=== PATIENT | female | born 1985 | race African-American/Black ===

== ENCOUNTER 2024-08-10 15:33 | Outpatient (REF) | payer OTHER, SELFPAY ==
--- NOTE | ~2024-08-10 | US_ITS ---
EXAMINATION: US ABDOMEN LIMITED CLINICAL INFORMATION: Painful mass right lower back.. COMPARISON: None available. TECHNIQUE: Real-time imaging of palpable right lower back mass was performed. FINDINGS: Imaging through the right lower back reveals no focal mass, lesion or fluid collection. US/US abdomen limited IMPRESSION: Unremarkable limited ultrasound right lower back. Electronically signed by: Phoenix Valero MD 08/11/2024 07:09 AM EDT
--- OUTSIDE RECORDS SUMMARY | 2024-08-10 17:27 | XMS_ITS | Data Portability ---
Author Organization [facility], [employer] Address [address] [place] [address] [place] [address] Assessment Encounter Date Assessment Date Assessment LastModified by Organization Details LastModified Time 09/24/2023 09/24/2023 Assessment - Concern regarding disc involvement and possible impingement leading to numbness - Possible hip involvement Plan - Recommendation for MRI of lumbar region and hips - Continue physical therapy - Continue walking as long as it does not worsen symptoms - Increase intake of fruits and vegetables for their anti-inflammatory properties Prescription Continue current medications Appointments Will inform pt as soon as MRI results are available During this encounter, 2 of the 3 elements of MDM addressed: (1)Number and Complexity of problems: (2)Amount/Complex ity of data (need 1 out of 3 categories): Category 2: Independent interpretation of tests. (3)Moderate Risk of morbidity from additional diagnostic testing or treatment (one needed): Prescription Drug management. [email or web address] Not available 09/24/2023 09:04:51 12/03/2023 12/03/2023 During this encounter, 2 of the 3 elements of MDM addressed: (1)Number and Complexity of problems: 2 or more stable chronic illnesses (2)Amount/Complex ity of data (need 1 out of 3 categories): Category 3: Discussion of management or test interpretation (3)Moderate Risk of morbidity from additional diagnostic testing or treatment (one needed): [email or web address] Not available 12/03/2023 13:49:30 05/05/2024 05/05/2024 The patient was advised to continue a healthy diet and exercise regularly. Preventative care discussed in detail. Eight minutes spent on each counselling about depression, alcohol, obesity, and cardiovascular health. Further preventative care counselling discussed as documented below. Plan - Keep tetanus vaccine on the radar for an update next year, as the last one was in 2016. - Consider scheduling the first mammogram in October, with the option to wait until the next visit to discuss further. - Use salt-free options or alternative seasonings to reduce salt intake, especially from packaged foods. Hydration goal of 60-100 ounces fluids daily. Reduce consumptions of processed food, fried food, red meat, to aim for LDL goal < 130 for cardiac risk reduction. - Maintain current physical activity routine, including restorative yoga and walking, to ensure regular movement. - Consider engaging a care trainer to focus on core stabilization, with available trainers at [employer] recommended for their good reviews. - If desired, seek a second opinion from a missile tracking technician regarding a suspected lipoma, with the option to make an appointment without a referral. Appointments - Appointment with a fertility specialist in [place]. - Eye exam scheduled for August 2024. [email or web address] Not available 05/05/2024 16:36:42 06/22/2024 06/22/2024 1. Mass - patien t with back pain that she has been worked up for, found to be musculoskeletal. It is difficult to palpate the mass that patient is feeling. U/s to be order - will discuss results with patient with possible referal to general surgery. [email or web address] Not available 06/22/2024 12:07:31 07/27/2024 07/27/2024 The patient consented to the IV infusion. The 20 gauge IV was placed in the patient's right antecubital space after 1 attempts. The patient tolerated the procedure well. Complications: none. The patient received a total of 1 liter of 0.9% normal saline. The IV was discontinued after the infusion and the catheter was examined and was intact. This visit is being performed by Noris Monroy RN under the direct supervision of Dar Tinoco DO and they are physically present in the office and available for immediate consultation. The treatment plan was determined by the supervising provider. [email or web address] Not available 07/27/2024 15:29:15 Plan of Treatment Reminders Order Date Submit Date Provider Last Modified By Organization Details Last Modified Time Details Appointments FOLLOW UP 20 2024 09:00A M YOON TOLBERT PA-C Not available Not available Not available Annual Exam 2025 11:00A Ko TOLBERT PA-C Not available Not available Not available Lab None recorded. Referral dermatolo gist referral 2023 024 [facility], [address], [address], [place], [address], 12/05/2023 11:46:27 physical therapist referral 2023 024 [email or web address] [facility], [address], [place], [address], 12/05/2023 11:31:57 Procedures None recorded. Surgeries None recorded. Imaging US, abdomen, limited - painful mass R lower back. r/o lipoma 2024 025 [facility] ([facility]), [address] [place], [address], 07/02/2024 04:01:46 MRI, lumbar spine, w/o contrast [address] [facility] ([facility] [address] [place], [address], 10/05/2023 07:37:03 MRI, hip, w/o contrast - unilatera l right hip [address] [facility] ([facility]), [address] [place], [address], 10/05/2023 07:37:59 Medication Orders None recorded. Patient TargetsNo targets recorded. Patient Instructions Encounter Date Encounter Id Patient Instructions Last Modified By Organization Details Last Modified Time 05/05/2024 [id number] dash diet: care instructions [email or web address] Not available 05/05/2024 16:36:42 Reason for Referral Physical Therapist Referral for Low back pain Referring Physician: [facility], Encounter Date: 12/03/2023 Staff Software Engineer Referral for M ass of skin Referring Physician: [facility], Encounter Date: 12/03/2023 Results Created Date Observation Date Name Description Value Unit Range Abnormal Flag Note LastModifiedBy Organization Detail LastModifiedTime 10/07/19 24 10/06/2023 MRI, lumba r spine , w/o contr ast No observ ation record ed. [facility] ([facility]) [address] [place], [address], 10/09/2023 16:18:52 10/07/19 24 10/06/2023 MRI, lumba r spine , w/o contr ast No observ ation record ed. [address] [facility] ([facility]) [address] [place], [address], 10/07/2023 18:25:55 10/08/1910/06/2023 MRI, hip, w/o contr ast No observ ation record ed. [facility] [address] [place], [address], 10/09/2023 16:42:46 10/08/19 24 10/06/2023 MRI, hip, w/o contr ast No observ ation record ed. [address] [facility] ([facility]) [address] [place], [address], 10/08/2023 19:35:14 Result Notes None recorded. Problems Name Problem SNOMED Code Status Onset Date Resolution Date Notes Provider Name and Address Organization Details Recorded Time Asthma 334995239 Active 2022 Amrita Urias, TODD [address] [facility], [address], [place], [address], [place] [facility] 3 08:45:44 Essential hypertension 89505480 Active 2022 Amrita Urias, TODD [address] [facility], [address], [place], [address], [place] [facility] 3 08:45:54 Uterine leiomyoma 13793626 Active 2023 YOON TOLBERT PA-C [address] [facility], [address], [place], [address], [place] [facility] 4 22:45:09 Problem Notes None recorded. Procedures Surgical History Date Name Laterality Status Provider Name and Address Organization Details Recorded Time 022 Date of Last Pap Smear completed Cristal Hinds [facility] 09/27/2022 15:40:07 009 Breast Surgery completed Amrita Urias, DENTAL LABORATORY TECHNICIAN APPRENTICE [address] [facility], [facility] [address], [place], [address], [facility] 07/03/2022 08:52:32 007 Cholecystectomy completed Amrita Urias, DENTAL LABORATORY TECHNICIAN APPRENTICE [address] [facility], [facility] [address], [place], [address], [facility] 07/03/2022 08:52:32 005 Tonsillectomy completed Amrita Urias, DENTAL LABORATORY TECHNICIAN APPRENTICE [address] [facility], [facility] [address], [place], [address], [facility] 07/03/2022 08:52:32 Imaging Results None recorded. Procedure Notes None recorded. Medical Equipment None Reported. Allergies Allergen ID Allergen Name Allergen Category Reaction Reaction Severity Criticality Documentation Date Start Date Code Code System Note Provider Name and Address Organization Details Recorded Time 4161 latex environme nt,medica tion hives moderate Not available 09/27/2022 95776 91 RxNorm Gloria Machado [facility] 4 10:19:41 6356 No known allergy (situatio n) Not available Not available Not available Not available 11/29/2023 04130 6003 SNOMED Gloria Machado [facility] 4 10:19:41 Medications Name Sig Start Date Stop Date Status Note LastModified by Organization Details LastModified Time cyclobenz aprine 10 mg tablet TAKE 1 TABLET BY MOUTH EVERY DAY 07/03 completed Not Available Not Available Not Available promethaz ine-DM 6.25 mg-15 mg/5 mL oral syrup TAKE 5 ML EVERY 4-6 HOURS BY ORAL ROUTE NEEDED, FOR FOR COUGH. MAXIMUM 30ML/24H OURS.. active Not Available Not Available No t Available nystatin 100,000 unit/mL oral suspensio n 07/22 completed Not Available Not Available Not Available prednison e 10 mg tablet TAKE 4 TABS DAILY FOR 4 DAYS THEN 3 TABS FOR 3 DAYS THEN 2 TABS FOR 2 DAYS THEN 1 TABELT FOR 1 DAY 10/08 /2024 completed Not Available Not Available Not Available Vitamin B-6 25 mg tablet take 1 tablet by mouth three times a day if needed for nausea and vomiting for 7 days 07/22 completed Not Available Not Available Not Available clindamyc in HCl 300 mg capsule take 1 capsule by mouth every 8 hours 09/27 completed Not Available Not Available Not Available ibuprofen 800 mg tablet take 1 tablet by mouth three times a day active Not Available Not Available No t Available Claritin 10 mg tablet 10 mg by oral route. 2022 active Not Available Not Available Not Avai lable carbamaze pine ER 100 mg tablet,ex tended release,1 2 hr take 1 tablet by mouth every 12 hours 01/29 completed Not Available Not Available Not Available metronida zole 0.75 % (37.5 mg/5 gram) vaginal gel INSERT 1 APPLICAT ORFUL VAGINALL Y EVERY DAY AT BEDTIME FOR 5 DAYS 07/03 completed Not Available Not Available Not Available famotidin e 40 mg tablet take 1 tablet by mouth twice a day 08/19 completed Not Available Not Available Not Available topiramat e 25 mg tablet TAKE 1 TABLET BY MOUTH EVERY DAY DIRECTED FOR 14 DAYS 07/03 completed Not Available Not Available Not Available metronida zole 500 mg tablet take 1 tablet by mouth twice a day for 14 days 07/22 completed Not Available Not Available Not Available amlodipin e 5 mg tablet TAKE 1 AND 1/2 TABLETS BY MOUTH DAILY 01/22 completed Not Available Not Available Not Available omeprazol e 40 mg capsule,d elayed release Take 1 capsule every day by oral route. 01/29 completed Not Available Not Available Not Available amoxicill in 500 mg tablet 07/22 completed Not Available Not Available Not Available triamcino lone acetonide 0.025 % topical cream active Not Available Not Available Not Available Proctofoa m 1 % topical Apply to anal area, as needed, up to 5 times daily. 2024 active Not Available Not Available Not Avai lable nifedipin e ER 60 mg tablet,ex tended release 24 hr Take 60 mg by oral route. 2023 active Not Available Not Available Not Avai lable amitripty line 10 mg tablet TAKE 1 TAB BY MOUTH DAILY AT BEDTIME, MAY INCREASE BY 1 TAB EACH WEEK DO NOT EXCEED 5 TABS DAILY. 07/03 completed Not Available Not Available Not Available doxycycli ne monohydra te 100 mg capsule take 1 capsule by mouth twice a day for 14 days 07/22 completed Not Available Not Available Not Available pantopraz ole 40 mg tablet,de layed release Take 1 tablet every day by oral route. 2024 active Not Available Not Available Not Avai lable oseltamiv ir 75 mg capsule TAKE 1 CAPSULE BY MOUTH TWICE A DAY FOR 5 DAYS 05/05 completed Not Available Not Available Not Available misoprost ol 200 mcg tablet INSERT 4 TABLETS VAGINALL Y ONCE 07/22 completed Not Available Not Available Not Available fluticaso ne propionat e 44 mcg/actua tion HFA aerosol inhaler INHALE 2 INHALATI ONS BY MOUTH DAILY 2023 active Not Available Not Available Not Avai lable indometha mike 25 mg capsule take 1 capsule by mouth three times a day for 3 days then 2 capsu... (REFER TO PRESCRIP TION NOTES). 01/29 completed Not Available Not Available Not Available omeprazol e 20 mg capsule,d elayed release Take 1 capsule every day by oral route. 09/27 completed Not Available Not Available Not Available monteluka st 10 mg tablet TAKE 1 TABLET BY MOUTH DAILY 2024 active Not Available Not Available Not Avai lable gabapenti n 100 mg capsule TAKE 1 CAPSULE BY MOUTH 3 TIMES A DAY FOR 10 DAYS 07/03 completed Not Available Not Available Not Available clobetaso l 0.05 % topical ointment APPLY A THIN LAYER TO THE AFFECTED AREA(S) BY TOPICAL ROUTE 2 TIMES PER DAY active Not Available Not Available No t Available scopolami ne 1 mg over 3 days transderm al patch APPLY 1 PATCH TOPICALL Y EVERY 72 HOURS NEEDED active Not Available Not Available No t Available methylpre dnisolone 4 mg tablets in a dose pack TAKE 1 PACK BY MOUTH DAILY FOR 6 DAYS DIRECTED ON PACKAGE 07/22 completed Not Available Not Available Not Available neomycin 500 mg tablet take 1 tablet by mouth twice a day 01/29 completed Not Available Not Available Not Available amoxicill in 875 mg-potass ium clavulana te 125 mg tablet TAKE 1 TABLET BY MOUTH EVERY 12 HOURS FOR 10 DAYS 07/03 completed Not Available Not Available Not Available oxycodone 5 mg tablet take 1 tablet by mouth every 6 hours if needed for pain 08/19 completed Not Available Not Available Not Available NuvaRing 0.12 mg-0.015 mg/24 hr vaginal Insert 1 vaginal ring every month by vaginal route. 01/29 completed Not Available Not Available Not Available cyclobenz aprine 5 mg tablet take 1 tablet by mouth four times a day if needed for 5 days active Not Available Not Available No t Available nitrofura ntoin monohydra te/macroc rystals 100 mg capsule take 1 capsule by mouth twice a day for 7 days 07/22 completed Not Available Not Available Not Available Flovent HFA 110 mcg/actua tion aerosol inhaler Inhale twice a day by inhalati on route. 05/05 completed Not Available Not Available Not Available chlorhexi dine gluconate 0.12 % mouthwash RINSE MOUTH WITH 15 MLS for 30 SECONDS every morning and evening ... (REFER TO PRESCRIP TION NOTES). 01/29 completed Not Available Not Available Not Available loratadin e 1 tab daily 09/27 completed Not Available Not Available Not Available Vitamin C active Not Available Not Teresa ilable Not Available Co Q-10 active Not Available Not Avail able Not Available DHEA active Not Available Not Availa ble Not Available riboflavi n (vitamin B2) 12/02 completed Not Available Not Available Not Available Vitamin D3 active Vitamin D 3000 IU- Vitamin K2 30 mcg po daily Not Available Not Available Not Available Vitamin B12 1000 IU active Not Available Not Available Not Available triamcino lone acetonide 0.1 %-emollie nt comb.no.4 5 topical cream 2022 active Not Available Not Available Not Avai lable Aerochamb er Plus Flow-Vu USE DIRECTED active Not Available Not Available No t Available + DHA active Not Available Not Available Not Available magnesium citrate 100 mg tablet 2023 active Not Available Not Available Not Avai lable ascorbic acid (vitamin C) 125 mg chewable tablet 2022 active Not Available Not Available Not Avai lable riboflavi n (vitamin B2) 400 mg tablet 400 mg by oral route. 2023 active Not Available Not Available Not Avai lable magnesium 200 mg (as magnesium oxide) tablet Take 2 tablets every day by oral route. active Not Available Not Available No t Available Qvar RediHaler 40 mcg/actua tion HFA breath activated aerosol Inhale 1 puff twice a day by inhalati on route for 90 days. active Not Available Not Available No t Available vitamin D3 1,250 mcg (50,000 unit)-vit pino K2 200 mcg capsule Take by oral route. 05/05 completed 300 0 30 mcg K 2 daily Not Available Not Available Not Available Paxlovid 300 mg (150 mg x 2)-100 mg tablets in a dose pack TAKE 3 TABLETS BY MOUTH TWICE A DAY FOR 5 DAYS 07/03 completed Not Available Not Available Not Available Vitals Date Recorded Body height Body mass index (BMI) Body weight Oxygen saturation Oxygen saturation in Arterial blood by Pulse oximetry Heart rate Systolic blood pressure Diastolic blood pressure Provider Name and Address Organization Details Last Updated DateTime 5 162.56 cm 36.8 kg/m2 85594.2 2 g 99 % 99 % 96 /min 136 mm[Hg] 72 mm[Hg] Gloria [facility] 5 12:58:10 Date Recorded Body height Oxygen saturation Oxygen saturation in Arterial blood by Pulse oximetry Heart rate Systolic blood pressure Diastolic blood pressure Provider Name and Address Organization Details Last Updated DateTime 4 162.56 cm 98 % 98 % 89 /min 134 mm[Hg] 68 mm[Hg] Gloria [facility] 4 08:36:50 Date Recorded Body height Oxygen saturation Oxygen saturation in Arterial blood by Pulse oximetry Heart rate Systolic blood pressure Diastolic blood pressure Provider Name and Address Organization Details Last Updated DateTime 4 162.56 cm 98 % 98 % 80 /min 144 mm[Hg] 80 mm[Hg] Noris Monroy RN [address] [address], [place], [address], [facility] 4 10:47:51 Social History Question Answer Notes LastModified by Organizat ion Details LastModified Time Tobacco Smoking Status Never Smoker Amrita Urias NP [address] [facility] [address], [place], [address], [place] [facility] 07/03/2022 08:51:43 Do You Have An Advance Directive? No Information not available 07/03/2022 What Is Your Level Of Caffeine Consumption? None [email or web address] Information not available 01/29/2023 What Was The Date Of Your Most Recent Tobacco Screening? 05/05/2024 [email or web address] Information not available 05/05/2024 Sex: Unknown Functional Status Question Answer Note LastModified by Organization Details LastModified Time Do you use any illicit or recreational drugs? No marijuana edible and smoking prior to [email or web address] Information not available 01/29/2023 What is your level of alcohol consumption? Occasional not during pregnany; avg of 3 drinks/month prior [email or web address] Information not available 01/29/2023 Do you or have you ever used smokeless tobacco? Never used smokeless tobacco Information not available 07/03/2022 Are you currently employed? 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 Family History Relationship Description Onset Age of this Age Resolved Age Notes LastModified by Organization Details LastModified Time Mother Harmful pattern of use of alcohol pt. added direct ly (07/02) [email or web address] Not available 07/02/2022 18:53:04 Mother Diabetes mellitus pt. added direct ly (07/02) [email or web address] Not available 07/02/2022 18:53:21 Mother Hypertensive disorder pt. added direct ly (07/02) [email or web address] Not available 07/02/2022 18:53:35 Mother Mental disorder pt. added direct ly (07/02) [email or web address] Not available 07/02/2022 18:53:46 Mother Chronic obstructive pulmonary disease pt. added direct ly (07/02) [email or web address] Not available 07/02/2022 18:54:01 Mother Substance abuse pt. added direct ly (07/02) [email or web address] Not available 07/02/2022 18:54:17 Brother Harmful pattern of use of alcohol pt. added direct ly (07/02) [email or web address] Not available 07/02/2022 18:53:04 Brother Asthma pt. added direct ly (07/02) [email or web address] Not available 07/02/2022 18:53:11 Brother Substance abuse pt. added direct ly (07/02) [email or web address] Not available 07/02/2022 18:54:17 Sister Asthma pt. added direct ly (07/02) [email or web address] Not available 07/02/2022 18:53:11 Maternal Uncle Diabetes mellitus pt. added direct ly (07/02) [email or web address] Not available 07/02/2022 18:53:21 Maternal Grandmother Hypertensive disorder pt. added direct ly (07/02) [email or web address] Not available 07/02/2022 18:53:35 Father Substance abuse pt. added direct ly (07/02) [email or web address] Not available 07/02/2022 18:54:17 Medical History Condition Response Obesity Y Eczema Y Headaches Y Hypertension Y Reflux/GERD Y Asthma Y Gynecological History Statement/Question Response Date of Last Pap Smear 01/05/2022 Obstetrics History GPAL:G 0 P 0 0 0 0 Immunizations Vaccine Type Date Status Note Provider Nam e and Address Organization Details Recorded Time Influenza, split virus, quadrivalent, preservative 0 completed Cristal Hinds null, [place] [facility] 09/27/2022 15:40:18 Influenza, split virus, quadrivalent, preservative 1 completed Cristal Hinds null, [place] [facility] 09/27/2022 15:40:19 Influenza, split virus, quadrivalent, preservative 8 completed Cristal Hinds null, [place] [facility] 09/27/2022 15:40:19 COVID-19, mRNA, LNP-S, PF, 100 mcg/0.5mL dose or 50 mcg/0.25mL dose 1 completed Cristal Hinds null, [place] [facility] 09/27/2022 15:40:19 COVID-19, mRNA, LNP-S, PF, 100 mcg/0.5mL dose or 50 mcg/0.25mL dose 1 completed Cristal Hinds null, [place] [facility] 09/27/2022 15:40:19 COVID-19, mRNA, LNP-S, PF, 100 mcg/0.5mL dose or 50 mcg/0.25mL dose 0 completed Cristal Burlingham null, [place] [facility] 09/27/2022 15:40:19 COVID-19, mRNA, LNP-S, PF, 30 mcg/0.3 mL dose 2 completed Cristal Burlingham null, [place] [facility] 09/27/2022 15:40:19 COVID-19, mRNA, LNP-S, bivalent, PF, 30 mcg/0.3 mL dose 2 completed Cristal Burlingham null, [place] [facility] 09/27/2022 15:40:19 pneumococcal polysaccharide PPV23 1 completed Cristal Burlingham null, [place] [facility] 09/27/2022 15:40:19 Tdap 6 completed Cristal Burlingham null, [place] [facility] 09/27/2022 15:40:19 Influenza, split virus, quadrivalent, PF 2 completed Cristal Burlingham null, [place] [facility] 09/27/2022 15:40:19 Influenza, split virus, quadrivalent, PF 9 completed Cristal Burlingham null, [place] [facility] 09/27/2022 15:40:19 COVID-19, mRNA, LNP-S, PF, diandra-sucrose, 30 mcg/0.3 mL 3 completed Cristal Burlingham null, [place] [facility] 06/14/2023 08:06:47 Influenza, split virus, quadrivalent, PF 3 completed Cristal Burlingham null, [place] [facility] 06/14/2023 08:06:47 COVID-19, mRNA, LNP-S, PF, diandra-sucrose, 30 mcg/0.3 mL 4 completed YOON TOLBERT PA-C [address] [place] [address], , [place] [facility] 05/05/2024 16:23:23 Influenza, MDCK, trivalent, PF 4 completed YOON TOLBERT PA-C [address] [address], [place], [place], , [place] [facility] 05/05/2024 16:23:23 Past Encounters Encounter ID Performer Location Encounter Start Date Encounter Closed Date Diagnosis/Indication Diagnosis SNOMED-CT Code Diagnosis ICD10 Code Diagnosis Note [id number] Amrita Urias NP Main Office [address] [place] [address] [address] [place] [address] 07/03/2022 08:35:17 07/03/2022 09:07:09 Essential hypertension 52127634 I10 Increase amlodipine to 7.5 mg daily. ADvised on possible s/e including dizziness, ankle swelling, etc. She will monitor @ home. Headache 65578347 R51.9 Refer to ENT to complete work up.Headach es generally better with addition of riboflavin . Screening for cardiovascular system disease 202625929 Z13.6 Check screening labs before physical. [id number] Sun Wilson NP Main Office [address] [place] [address] [address] [place] [address] 09/27/2022 15:36:29 09/27/2022 16:02:42 Unilateral left sided headache 3522984852 R51.9 Ongoing for 14 months. When discussing with her it sounds as if it follows the 5th cranial nerve pathway, possible trigeminal neuralgia diagnosis. We discussed this and I am willing to trial low dose carbamazep ine to see if she has any improvemen t in symptoms. She will follow up in 2-3 weeks so we can check in. Will refer to rheumatolo gy and neurology as well. She has a health plan that allows her to go out of state and she requests specific provider so we will make those referral for her today. [id number] Amrita Urias NP Main Office [address] [place] [address] [address] [facility] [place] [id number] 11/06/2022 09:24:33 11/06/2022 09:56:18 Headache due to exertion [id number] 26017 G44.84 Recommenda tions from neurologis t Dr. Matson are reasonable .Will check for any vascular anomaly as below. MRI brain w/w/o contrast already been ordered, wonder if they can be combined.I f secondary causes r/o, will trial indomethac in as below. 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 [id number] Amrita Urias NP Main Office [address] [facility],[address] [place] [address] 12/25/2022 09:02:28 12/25/2022 09:37:49 Gastroesophageal reflux disease [id number] K21.00 With max OTC dosing PPI, referral to GI for likely EGD is reasonable . Will switch to pantoprazo le BID, may offer more benefits. Call if symptoms worsen before GI referral. Chronic constipation [id number] K59.09 Improved with OTC magnesium, and recommenda tions from functional medicine provider. Will defer decision regarding colonoscop y to GI. [id number] YOON TOLBERT PA-C Main Office [address] [facility],[address] [place] [address] 01/29/2023 11:00:38 01/29/2023 12:09:20 Active or passive immunization [id number] Z23 already obtained flu and covid shots 12/28/22 Adult heal th examination [id number] Z00.00 Gastroesop hageal reflux disease [id number] K21.9 Was planning to obtain an endoscopy prior to , but plans to wait until after at this time. Symptoms well controlled with pepcid thus far. Discussed the risk of worsening GERD symptoms during , pt plans to reach out to gastroente rologist if needed. Reviewed lifestyle modificati ons. Asthma [id number] J45.90 9 Well controlled . Requesting refill on spacer at this time [id number] YOON TOLBERT PA-C Main Office [address] [place] [address],[address] [place] [address] 07/23/2023 11:38:44 07/23/2023 13:52:45 Acute pelvic pain [id number] R10.2 Case discussed with Sun Wilson NP.Ddx: acute cystitis, endometrit is, cervicitis , ovarian cyst rupture, vs ectopic (low risk given recent LMP in last 2 weeks)Plan :- Will obtain labs and pelvic US as below. Will plan to f/u with [facility] gynecology 08/05/23.- ED criteria provided. Venereal d isease screening [id number] Z11.3 Low back pain [id number] M54.50 2 day history of acute back pain. 06/04, constant, described as spasm, following a tweak in the shower.Con tinues with conservati ve management .Reviewed possible risks, benefits, and side effects of medication .Intereste d in toradol injection, which cannot be completed until negative urine hcg is obtained.I f pain is persistent , pt may request to return for a nursing visit for such. [id number] YOON TOLBERT PA-C Main Office [address] [place] [address],[address] [place] [address] 08/20/2023 08:21:51 08/20/2023 08:59:50 Low back pain [id number] M54.50 Assessment - Concern for muscular sprain/spa sm, sacroiliit is, disc impingemen t/bulge, lumbar radiculopa thy (less likely in the absence of neurologic al sx)Plan- Referral to physical therapy- Continue with ice and heat, 20 minutes on, 20 minutes off- Continue with Tylenol/ib uprofen PRN, ice, heat, Lidocaine patches- continue walking as much as possible- Strict ED criteria provided [id number] YOON TOLBERT PA-C Main Office [address] [place] [address],[address] [place] [address] 09/24/2023 08:25:33 09/24/2023 09:20:42 Low back pain [id number] M54.50 Assessment - Concern for muscular sprain/spa sm, sacroiliit is, disc impingemen t/bulge, lumbar radiculopa thyPlan- Continue with physical therapy- Continue with ice and heat, 20 minutes on, 20 minutes off- Continue with Tylenol/ib uprofen PRN, ice, heat, Lidocaine patches, +/- turmeric supplement - continue walking as much as possible- Strict ED criteria provided [id number] YOON TOLBERT PA-C Main Office [address] [place] [address],[address] [place] [address] 12/03/2023 10:40:35 12/03/2023 10:56:49 Low back pain [id number] M54.50 Assessment - Persistent , intermitte nt low back pain. MRI consistent with mild degenerati ve changes at L4-5 and L5-S1. See last visit for further details regarding eval.Christin rn for co-occurri ng muscular sprain/spa sm, sacroiliit is, lumbar radiculopa thySee last visitPlan- Continue with physical therapy, pt requesting new referral at this time- Continue with ice and heat, 20 minutes on, 20 minutes off- Continue with Tylenol/ib uprofen PRN, ice, heat, Lidocaine patches, +/- turmeric supplement - Continue walking as much as possible- Strict ED criteria provided Mass of skin [id number] R 22.9 A singular, circular, jeanne-siz ed, well defined, soft, mobile, nontender mass palpated right paralumbar region, approximat alma 3 inches lateral from spine. Ddx includes lipoma, cyst, abscess, malignancy . We reviewed that this is most likely consistent with a lipoma, but will request consult from dermatolog y at this time for eval & management . [id number] ALBERT GUTIERREZ-C Main Office [address] [facility],[address] [place] [address] 05/05/2024 12:51:44 05/05/2024 13:28:53 Active or passive immunization [id number] Z23 Up to date on flu, covid, and tetanus. Adult heal th examination [id number] Z00.00 Will be eligible for 1st mammo 10/2023- prefers to discuss ordering at next visit.Up to date on cervical ca screen. Trying to conceive [id number] Z31.9 May request future referral to [facility]. Elevated blood-pressure reading without diagnosis of hypertension 791383221 R03.0 Monitors BP once weekly at home. Typically 120s/80-90 mmHg. Will continue to monitor routinely. Counseled on role of hydration, physical activity, reduced salt consumptio n. Mass of skin 423322156 R 22.9 A singular, circular, jeanne-siz ed, well defined, soft, mobile, nontender mass palpated right paralumbar region, approximat alma 3 inches lateral from spine. Seen by derm w/o conclusive result. Ddx includes lipoma, cyst, abscess, malignancy . We reviewed that this is most likely consistent with a lipoma, but will request second consult from dermatolog y at this time for eval & management . [id number] ALBERT GASTON Main Office [address] [facility],[address] [place] [address] 06/22/2024 09:57:23 06/22/2024 11:29:15 Lipoma of back [id number] D17.1 [id number] Noris Monroy RN Main Office [address] [facility],[address] [place] [address] 07/27/2024 14:27:53 07/27/2024 15:56:13 Dehydration [id number] E86.0 Health Concerns Section Related Observation LastModified by Organization Detai ls LastModified Time None Recorded Concern Status LastModified by Organization Details LastModified Time None Recorded Advance Directives Directive N: Payers Insurance Date Sequence Insurance Name Policy Number Policy Amos Covered Member ID Amos Member ID Guarantor Name 08/01/2024 1 [facility] (POS) [id number] Pascale S Sarpey [id number] Pascale Sarpey 08/01/2024 1 [facility] Pascale Ledbetter [id number] Pascale Sarpey 08/01/2024 1 [facility] [id number] Pascale S Sarpey [id number] Pascale Sarpey 08/01/2024 1 [employer] Sandor Sarpey [id number] Pascale Sarpey 08/01/2024 [employer] [place] [facility] [id number] Pascale S Sarpey [id number] Pascale Sarpey Notes Date Note Type Note Provider Name and Address Organization Details Recorded Time 09/24/2023 text/html Chief complaintB ack pain and numbness in feet History of present illness- Reports new onset numbness on the plantar aspect of toes; more on the right, starting from Saturday night into Saturday- Numbness is intermittent and is present at the time of consultation- Denies radiation of pain to other aspects of lower extremities, groin area- Low back pain has been stable/persistent for about two months- Back pain is most uncomfortable when bending over and laying on the side- Back pain does not wake her up at night, but she has to sleep in a certain position (on her back)- Tenderness in lower back and hips. Pain in lower back wraps around to the front. Pain increases when bending over and laying on the side. No pain when rising from a seated position or standing for long periods.- Continues to work with chiropractor and PT (2nd session scheduled today) Past medical historyHistory of arthritis in 2019 Social history- Walking more in the past month, which seems to be helpful- Sits for a large portion of the day, but was off work the last week Current medications- Tylenol Ibuprofen, taken daily- Muscle relaxers, taken as needed- DHEA sulfate supplement for low hormone levels- Low dose Naltrexone (discontinued) Vitals- No unintentional weight loss- No changes in physical activity levels, except for starting physical therapy and walking more YONO TOLBERT PA-C [address] [facility] [address], [place], [address], [place] [facility] 09/25/2023 13:09:28 12/03/2023 text/html Chief complaintR equest for referral for physical therapy and lipoma removal History of present illness- Reports that back pain is improving after working with [facility], but would like to transition to [facility] for continuation of care- Aware that long periods of driving continue to exacerbate LBP sx- Concern regarding soft tissue mass on lower back, request derm referral YOON TOLBERT PA-C [address] [facility] [address], [place], [address], [place] [facility] 12/03/2023 13:49:55 05/05/2024 text/html Pascale Encarnacion, a 38-year-old female, presents for an annual exam. She is planning to start a new job in at [employer]. Pt reported no current concerns during the visit. She mentioned having had the flu in February 2024, which has since resolved. She experiences reflux symptoms triggered by spicy and fatty foods and manages these with pantoprazole. Her back condition is stable, and she previously received trigger point injections, which helped alleviate symptoms. She is completing routine physical activity (yoga, walks) and may consider working with a care trainer moving forward. YOON TOLBERT PA-C [address] [place] [address], [address], [address], [facility] - [facility] 05/05/2024 16:36:49 06/22/2024 text/html Patient has a no dule on the back. Present for about 1 year, is not painful or growing. Patient declined CSE today. ALBERT GASTON [address] [address], [place], [address], [place] [facility] 06/25/2024 13:51:15 07/27/2024 text/html The patient is h ere for elective IV hydration, to treat dehydration They will be receiving alleviate. Add ons: toradol to treat pain.They have been screened for contraindications to IV therapy including previous adverse reaction to IV therapy. Dar Tinoco, DO [address] [address], [place], [address], [place] [facility] 08/03/2024 05:51:55 OBGyn Episode No OBEpisode recorded.
== END 2024-08-10 15:34 | disposition home or self-care (01) ==
LOC: HO.US 15:33
PROVIDERS: Visit Provider Physician Assistant Medical
DX: D17.1 Benign lipomatous neoplasm of skin and subcutaneous tissue of trunk (principal)
CPT/HCPCS: 76705

== ENCOUNTER → 2024-08-10 15:51 | Outpatient (BNV) | payer OTHER, SELFPAY | PROVIDERS: Visit Provider Radiology Diagnostic Radiology | DX: R22.2 Localized swelling, mass and lump, trunk (principal) | CPT/HCPCS: 76705 ==

== ENCOUNTER 2024-11-02 09:02 | Outpatient (AMB) | payer OTHER, SELFPAY ==
--- NOTE | 2024-11-02 09:07 | MHC.OFFVIS ---
Vital Signs 11/02/24 09:09 Height 5 ft 5 in Weight 210 lb BMI 34.9 BP 137/73 Blood Pressure Location Lt brachial Position Sitting Respiration 16 Pulse 85 Pulse Source Pulse Oximeter Pulse Oximetry (%) 98 Oxygen Delivery Method Room Air Intake Visit Reasons: Back pain Sofa Cover Inspector Required: No Allergies latex Adverse Reaction (Severe, Verified 11/02/24 09:10) Rash Medication List - Last Reconciled 11/02/24 by Jaki Roy LPN amlodipine 7.5 mg PO DAILY beclomethasone dipropionate 40 mcg/actuation (Qvar RediHaler) inhalation [id number] 500 mcg-250 mcg-50 mg-50 mg caps PO loratadine (Allergy Relief (loratadine)) 10 mg PO DAILY montelukast 10 mg PO DAILY pantoprazole mg PO riboflavin (vitamin B2) 400 mg PO DAILY HPI HPI Back pain: Details: History of Present Illness The patient is a 38-year-old female presenting with left-sided facial pain and mid to lower back pain. The left-sided facial pain has persisted for four years, characterized by an aching sensation with a severity of 3/10. Indomethacin was trialed but interrupted due to , though it was deemed somewhat effective. Craniofacial nerve blocks were recommended but not yet attempted. The mid to lower back pain has been present for one year, described as an aching sensation with a severity of 4-6/10, worsening by day's end. The pain is relieved by heat and cold applications, exacerbated by prolonged sitting, and does not affect sleep or daily activities. Physical therapy, chiropractic manipulation, massage therapy, and acupuncture have provided moderate relief. The patient has a history of breast reduction surgery and has received trigger point injections for back pain.The patient adheres to an anti-inflammatory lifestyle and intermittent fasting. Pain Description - Onset: Left-sided facial pain for 4 years; mid to lower back pain for 1 year - Quality: Aching sensation - Severity: Facial pain 3/10; back pain 4-6/10 - Exacerbating factors: Prolonged sitting - Relieving factors: Heat and cold applications - Interference: Does not interfere with sleep or daily activities Physical Exam - Appears afebrile. - Alert and oriented. - Mood and affect appropriate. - Follows and participates in conversation appropriately. - Respiratory effort is unlabored. - Able to transition from sit to stand unassisted. - Ambulates with bilaterally normal heel strike and toe off. - Able to stand and walk on toes and heels. - Musculoskeletal: Pain on extension of the back Results - Imaging: MRI of the lower back showing degenerative disc disease Pain Management - Affect: Pain impacts patient's mood and psychological wellbeing due to frustration with chronic pain - Analgesia: Indomethacin trialed for facial pain; current pain levels are 3/10 for facial pain and 4-6/10 for back pain - Activities of Daily Living: Pain does not interfere with sleep or daily activities but causes frustration [facility] Medical History (Updated 11/04/24 @ 12:25 by Chito Antonio MD) Essential hypertension Asthma Low back strain Physical Exam Vital Signs: Last Vital Signs Pulse 85 11/02/24 09:09 Resp 16 11/02/24 09:09 BP 137/73 11/02/24 09:09 Pulse Ox 98 11/02/24 09:09 Oxygen Delivery Method Room Air 11/02/24 09:09 BMI result Body Mass Index 34.9 Assessment & Plan Assessment & Plan (1) Discogenic lumbar pain: Code(s): M51.360 - Other intervertebral disc degeneration, lumbar region with discogenic back pain only Category: Medical (2) Lumbar spondylosis: Code(s): M47.816 - Spondylosis without myelopathy or radiculopathy, lumbar region Category: Medical (3) Sacroiliac dysfunction: Code(s): M53.3 - Sacrococcygeal disorders, not elsewhere classified Category: Medical Plan Plan Patient was informed and verbally consented to the use of an ambient scribe for clinic note documentation during this visit. 1. Left-Sided Facial Pain - Retry indomethacin or Boswelia supplement as it was previously effective. - Craniofacial nerve blocks were recommended but not yet trialed. 2. Mid To Lower Back Pain - Diagnosed with degenerative disc disease; advised to engage in swimming as a conservative measure. - Trial of diagnostic SIJ and lower lumbar medial branch blocks to delineate source of axial pain. - Consider epidural steroid injections for temporary relief if conservative measures are insufficient and diagnostic injection negative. Discussion Notes I discussed with the patient the diagnosis of degenerative disc disease and the importance of conservative measures such as swimming to alleviate symptoms. We also talked about the potential use of epidural steroid injections for temporary relief if conservative measures are insufficient. For facial pain, retrying indomethacin was suggested, and craniofacial nerve blocks were recommended but not yet trialed. Patient Instructions - Consider retrying indomethacin for facial pain as it was previously effective. - Engage in swimming regularly to help manage back pain due to degenerative disc disease. - Discuss with your and consider craniofacial nerve blocks for facial pain. - Consider epidural steroid injections if conservative measures for back pain are insufficient. Coding Level of Care Code New Pt Level 4 (20057) Diagnoses Discogenic lumbar pain M51.360 Lumbar spondylosis M47.816 Sacroiliac dysfunction M53.3
[2024-11-02 09:09] VITALS: BP 137/73; PULSE 85; RESP 16; O2SAT 98; BMI 34.9
--- OUTSIDE RECORDS SUMMARY | 2024-11-02 10:13 | XMS_ITS | Clinical Summary ---
Author Organization [facility] Address [address] [address] Phone Care Team Providers Care Gold Layer Name Role Phone Amrita Urias ZIG ZAG STITCHER Primary Care Provider Allergies No known active allergies Medications riboflavin, vitamin B2, 400 mg Tab Take 400 mg by mouth daily. 4 Active pantoprazole (PROTONIX) 40 MG tablet Take 40 mg by mouth daily. 3 Active montelukast (SINGULAIR) 10 mg tablet Take 10 mg by mouth nightly at bedtime. 3 Active magnesium citrate 100 mg Tab 0 Refills, Maintenance, 05/14/23 11:06:00 EDT, Partial fill upon patient request if the prescription is for a schedule II opioid drug. 4 Active loratadine (CLARITIN) 10 mg tablet Take 10 mg by mouth daily. 3 Active fluticasone propionate (FLOVENT HFA) 110 mcg/actuation inhaler Inhale into the lungs 2 (two) times a day. 3 Active cyclobenzaprine (FLEXERIL) 5 MG tablet Take 5 mg by mouth 2 (two) times a day as needed. 4 Active clobetasol (TEMOVATE) 0.05 % ointment 4 Active ubidecarenone/v itamin E mixed (COQ10 SG 100 ORAL) Take 100 mg by mouth. 4 Active mv-mn/iron/foli c acid/herb 190 (VITAMIN D3 COMPLETE ORAL) Take 62.5 mcg by mouth. 3 Active 25/iron fum/folic/dha (-1 ORAL) 0 Refills, Maintenance, 02/12/23 14:46:00 EST, Partial fill upon patient request if the prescription is for a schedule II opioid drug. 3 Active triamcinolone acetonide 0.1 % cream Once, 0 Refills, Maintenance, 02/12/23 14:50:00 EST, Partial fill upon patient request if the prescription is for a schedule II opioid drug. 3 Active ascorbic acid, vitamin C, (VITAMIN C) 125 mg Chew Take by mouth. 3 Active Medication-Free Text Testosterone/Pro gesterone Cream Active Social History Tobacco Use Types Packs/Day Years Used Date Smoking Tobacco: Never Smokeless Tobacco: Never Tobacco Cessation:Counseling Given: Not Answered Education Answer Date Recorded Are you interested in more education? Not on toni e 04/09/2023 Are you concerned about learning? Not on file 04/09/2023 No 04/09/2023 No 04/09/2023 Digital Access Answer Date Recorded No 04/09/2023 No 04/09/2023 Reliable internet access at home? Not on file 04/09/2023 Device with a working camera? Not on file Comments Unknown Sex and Gender Information Value Date Recorded Sex Assigned at Not on file Legal Sex Female 3:30 PM EST Gender Identity Not on file Sexual Orientation Not on file Last Filed Vital Signs Vital Sign Reading Time Taken Comments Blood Pressure - - Pulse - - Temperature - - Respiratory Rate - - Oxygen Saturation - - Inhaled Oxygen Concentration - - Weight 102 kg (224 lb 12.8 oz) 07/25/2023 8:08 A M EDT Height 166.4 cm (5' 5.5 ) 07/25/2023 8:08 AM EDT Body Mass Index 36.84 07/25/2023 8:08 AM EDT Plan of Treatment Health Maintenance Due Date Last Done Comments Adult Td,Tdap Booster 1984 DEPRESSION SCREENING 1996 HEPATITIS C SCREENING 2002 HIV ONE-TIME SCREENING (18-6 5 YEARS) 2002 PAP SMEAR 2005 SCREENING FOR DIABETES 11/05/2019 INFLUENZA VACCINE (#1) 2024 COVID-19 VACCINE (2023-2 5 season) 2024 SMOKING STATUS SCREENING (On ce After 26 Yrs) Completed 07/25/2023 HEPATITIS A VACCINES Aged Out No long er eligible based on patient's age to complete this topic HIB VACCINES Aged Out No longer eligi ble based on patient's age to complete this topic MENINGOCOCCAL VACCINES (ACWY) Aged Out No longer eligible based on patient's age to complete this topic MENINGOCOCCAL VACCINES (B) Aged Out N o longer eligible based on patient's age to complete this topic PNEUMOCOCCAL VACCINES (0-49 years) Aged Out No longer eligible based on patient's age to complete this topic Medical Devices Not on file Insurance [employer] [place] [address] Care Teams Gold Layer Relationship Specialty Start Date End Date Amrita Urias NP [address] [place] [address] [email or web address] PCP - General Nurse Practitioner 10/10/23 Additional Source Comments The information contained in this document represents components of the legal health record. It is not the complete legal health record.[facility]
== END 2024-11-02 10:00 | disposition home or self-care (01) ==
LOC: HO.PMC 09:03
PROVIDERS: PCP Physician Assistant; Referring Provider Physician Assistant; Visit Provider Internal Medicine
DX: M51.360 Other intervertebral disc degeneration, lumbar region with discogenic back pain only (principal); M47.816 Spondylosis without myelopathy or radiculopathy, lumbar region; M53.3 Sacrococcygeal disorders, not elsewhere classified
CPT/HCPCS: 99204

== ENCOUNTER 2024-12-03 07:11 | Outpatient (RCR) | payer OTHER, SELFPAY | END 2025-01-18 13:56 | disposition home or self-care (01) | LOC: HO.PT 07:11 | PROVIDERS: PCP Physician Assistant; Visit Provider Physician Assistant | DX: M54.50 Low back pain, unspecified (principal); G89.29 Other chronic pain | CPT/HCPCS: 97110; 97112; 97116; 97140; 97162; 97530; 97535 ==

== ENCOUNTER 2024-12-09 07:24 | Outpatient (REF) | payer OTHER, SELFPAY ==
--- NOTE | ~2024-12-09 | XR_ITS ---
EXAMINATION: XR SACROILIAC JOINT 1-2 VIEWS HISTORY: M53.3 - Sacrococcygeal disorders, not elsewhere classified COMPARISON: There are no prior studies available for comparison. FINDINGS: Three views of the bilateral sacroiliac joints are submitted. The joint spaces are maintained. No erosions are identified. XR/XR sacroiliac joint 1-2V IMPRESSION: Unremarkable examination of the sacroiliac joints. Electronically signed by: Mamadou Medel MD 12/09/2024 07:53 AM EDT
--- OUTSIDE RECORDS SUMMARY | 2024-12-09 07:29 | XMS_ITS | Data Portability ---
Author Organization On license of [facility], [employer] Address [address] [place] [id number] Assessment Encounter Date Assessment Date Assessment LastModified by Organization Details LastModified Time 05/05/2024 05/05/2024 The patient was advised to continue a healthy diet and exercise regularly. Preventative care discussed in detail. Eight minutes spent on each counselling about depression, alcohol, obesity, and cardiovascular health. Further preventative care counselling discussed as documented below. Plan - Keep tetanus vaccine on the radar for an update next year, as the last one was in 2015. - Consider scheduling the first mammogram in [...] ensure regular movement. - Consider engaging a certified personal finance counselor to focus on core stabilization, with available trainers at [employer] recommended for their good reviews. - If desired, seek a second opinion from a it administrative assistant regarding a suspected lipoma, with the option to make an appointment without a referral. Appointments - Appointment with a fertility specialist in [place]. - Eye exam scheduled for August 2024. [email or web address] Not available 05/05/2024 16:36:42 06/22/2024 06/22/2024 1. [...] supervising provider. [email or web address] Not available 07/27/2024 15:29:15 10/12/2024 10/12/2024 During this encounter, 2 of the 3 elements of MDM addressed: (1)Number and Complexity of problems: 1 or more chronic illness with exacerbation, progression, or side effects of treatment (2)Amount/Complex ity of data (need 1 out of 3 categories): Category 3: Discussion of management or test interpretation (3)Moderate Risk of morbidity from additional diagnostic testing or treatment (one needed): Not available 10/12/2024 11:55:38 Plan of Treatment Reminders Order Date Submit Date Provider Last Modified By Organization Details Last Modified Time Details Appointments Annual Exam 2025 11:00A M YOON TOLBERT PA-C Not available Not available Not available Lab vitamin D, 25-hydrox y, total, serum 2024 [id number] [email or web address] [facility], [address], [place], [address], 10/12/2024 09:43:50 TSH, ultra-sen sitive, serum 2024 026 [email or web address] [facility], [address], [place], [address], 10/12/2024 09:43:51 lipid panel, serum 2024 026 [email or web address] [facility], [address], [place], [address], 10/12/2024 09:43:51 CBC 2024 026 [email or web address] [facility], [address], [place], [address], 10/12/2024 09:43:51 CMP, serum or plasma 2024 026 [email or web address] [facility], [address], [place], [address], 10/12/2024 09:43:51 HbA1c (hemoglob in A1c), blood 2024 026 [email or web address] [facility], [address], [place], [address], 10/12/2024 09:43:51 insulin, serum 2024 026 [email or web address] [facility], [address], [place], [address], 10/12/2024 09:43:51 Referral podiatris t referral 2024 025 BONNY Avalos DPM, [address] [place], [address], 10/16/2024 15:06:07 Procedures None recorded. Surgeries None recorded. Imaging MAMMO, screening , digital, bilateral [email or web address] (Imaging), [address] [place] [address], [address], 10/15/2024 11:04:44 US, abdomen, limited - painful mass R lower back. r/o lipoma 2024 025 [facility] (Imaging), [address] [place] [address], [address], 08/11/2024 07:14:12 Medication Orders None recorded. Patient TargetsNo targets recorded. 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 METAB OLIC PANEL (14) glucose 83 mg/dL 70-99 normal Not Available [facility] ([facility]) [address] [place], [address], 05/05/2024 06:07:19 05/05/1905/04/2024 COMP. METAB OLIC PANEL (14) BUN 12 mg/dL 6-20 normal Not Available [facility] ([facility]) [address] [place], [address], 05/05/2024 06:07:19 05/05/19 25 05/04/2024 COMP. METAB OLIC PANEL (14) creatinine 0.77 mg/dL 0.57-1 .00 normal Not Available [facility] ([facility]) [address] [place], [address], 05/05/2024 06:07:19 05/05/19 25 05/04/2024 COMP. METAB OLIC PANEL (14) eGFR 101 mL/mi n/1.7 3 >59 normal Not Available [facility] ([facility]) [address] [place], [address], 05/05/2024 06:07:19 05/05/19 25 05/04/2024 COMP. METAB OLIC PANEL (14) BUN/creatini ne ratio 16 9-23 normal Not Available [facility] ([facility]) [address] [place], [address], 05/05/2024 06:07:19 05/05/19 25 05/04/2024 COMP. METAB OLIC PANEL (14) sodium 139 mmol/ L 134-14 4 normal Not Available [facility] ([facility]) [address] [facility] [place], [address], 05/05/2024 06:07:19 05/05/19 25 05/04/2024 COMP. METAB OLIC PANEL (14) potassium 4.2 mmol/ L 3.5-5. 2 normal Not Available [facility] ([facility]) [address] [facility] [place], [address], 05/05/2024 06:07:19 05/05/19 25 05/04/2024 COMP. METAB OLIC PANEL (14) chloride 103 mmol/ L 96-106 normal Not Available [facility] ([facility]) [address] [facility] [place], [address], 05/05/2024 06:07:19 05/05/19 25 05/04/2024 COMP. METAB OLIC PANEL (14) carbon dioxide, total 24 mmol/ L 20-29 normal Not Available [facility] ([facility]) [address] [facility] [place], [address], 05/05/2024 06:07:19 05/05/19 25 05/04/2024 COMP. METAB OLIC PANEL (14) calcium 8.6 mg/dL 8.7-10 .2 below low normal Not Available [facility] ([facility]) [address] [facility] [place], [address], 05/05/2024 06:07:19 05/05/19 25 05/04/2024 COMP. METAB OLIC PANEL (14) protein, total 6.4 g/dL 6.0-8. 5 normal Not Available [facility] ([facility]) [address] [facility] [place], [address], 05/05/2024 06:07:19 05/05/19 25 05/04/2024 COMP. METAB OLIC PANEL (14) albumin 4.1 g/dL 3.9-4. 9 normal Not Available [facility] ([facility]) [address] [facility] [place], [address], 05/05/2024 06:07:19 05/05/19 25 05/04/2024 COMP. METAB OLIC PANEL (14) globulin, total 2.3 g/dL 1.5-4. 5 Not Available [facility] ([facility]) [address] [facility] [place], [address], 05/05/2024 06:07:19 05/05/19 25 05/04/2024 COMP. METAB OLIC PANEL (14) bilirubin, total <0.2 mg/dL 0.0-1. 2 Not Available [facility] ([facility]) [address] [facility] [place], [address], 05/05/2024 06:07:19 05/05/19 25 05/04/2024 COMP. METAB OLIC PANEL (14) alkaline phosphatase 65 IU/L 44-121 normal Not Available [facility] ([facility]) [address] [facility] [place], [address], 05/05/2024 06:07:19 05/05/19 25 05/04/2024 COMP. METAB OLIC PANEL (14) AST (SGOT) 19 IU/L 0-40 normal Not Available [facility] ([facility]) [address] [place], [address], 05/05/2024 06:07:19 05/05/19 25 05/04/2024 COMP. METAB OLIC PANEL (14) ALT (SGPT) 15 IU/L 0-32 normal Not Available [facility] ([facility]) [address] [place], [address], 05/05/2024 06:07:19 05/05/19 25 05/04/2024 LIPID PANEL cholesterol, total 192 mg/dL 100-19 9 normal Not Available [facility] ([facility]) [address] [facility] [place], [address], 05/05/2024 06:07:20 05/05/19 25 05/04/2024 LIPID PANEL triglyceride s 70 mg/dL 0-149 normal Not Available [facility] ([facility]) [address] [facility] [place], [address], 05/05/2024 06:07:20 05/05/19 25 05/04/2024 LIPID PANEL HDL cholesterol 55 mg/dL >39 normal Not Available [facility] ([facility]) [address] [place], [address], 05/05/2024 06:07:20 05/05/19 25 05/04/2024 LIPID PANEL VLDL cholesterol sharlene 13 mg/dL 5-40 Not Available [facility] ([facility]) [address] [place], [address], 05/05/2024 06:07:20 05/05/19 25 05/04/2024 LIPID PANEL LDL chol calc ([facility]) 124 mg/dL 0-99 above high normal Not Available [facility] ([facility]) [address] [place], [address], 05/05/2024 06:07:20 05/05/19 25 05/04/2024 LIPID PANEL LDL calc comment: [employer] Not Available [facility] ([facility]) [address] [place], [address], 05/05/2024 06:07:20 05/05/19 25 05/05/2024 IRON AND TIBC iron bind.cap.(TI BC) 341 ug/dL 250-45 0 normal Not Available [facility] ([facility]) [address] [place], [address], 05/05/2024 06:07:20 05/05/19 25 05/05/2024 IRON AND TIBC UIBC 285 ug/dL 131-42 5 normal Not Available [facility] ([facility]) [address] [facility], [place], [address], 05/05/2024 06:07:20 05/05/1905/05/2024 IRON AND TIBC iron 56 ug/dL 27-159 normal Not Available [facility] ([facility]) [address] [facility], [place], [address], 05/05/2024 06:07:20 05/05/19 25 05/05/2024 IRON AND TIBC iron saturation 16 % 15-55 normal Not Available [facility] ([facility]) [address] [facility], [place], [address], 05/05/2024 06:07:20 05/05/1905/04/2024 HEMOG LOBIN A1C hemoglobin A1C 5.3 % 4.8-5. 6 normal Predi abete s: 5.7 - 6.4 Diabe destini: >6.4 Glyce carlie contr ol for adult s with diabe destini: <7.0 Not Available [facility] ([facility]) [address] [facility], [place], [address], 05/05/2024 06:07:20 05/05/1905/05/2024 VITAM IN D, 25-HY DROXY vitamin D, 25-hydroxy 60.2 NG/mL 30.0-1 00.0 Vitam in D defic iency has been defin ed by the Insti tute of Medic ine and an Endoc rine Socie ty pract ice guide line as a level of serum 25-OH vitam in D less than 20 ng/mL (1,2) . The Endoc rine Socie ty went on to furth er defin e vitam in D insuf ficie ncy as a level betwe en 21 and 29 ng/mL (2). 1. IOM (Inst itute of Medic ine). 2010. Dieta ry refer ence intak es for calci um and D. Luis smith [place]: The [facility] . 2. Darvin hurtado MF, Kacie aceves [place], Bisch off-F errar i FIGUEROA, et al. Evalu ation , treat ment, and preve ntion of vitam in D defic iency : an Endoc rine Socie ty clini sharlene pract ice guide line. JCEM. 2010; 96(7) :1911 -30. Not Available [facility] ([facility]) [address] [facility], [place], [address], 05/05/2024 06:07:21 05/05/19 25 05/05/2024 INSUL IN insulin 11.8 uIU/m L 2.6-24 .9 normal Not Available [facility] ([facility]) [address] [facility], [place], [address], 05/05/2024 06:07:21 05/05/19 25 05/05/2024 MARA TIN ferritin 31 NG/mL 15-150 normal Not Available [facility] ([facility]) [address] [facility], [place], [address], 05/05/2024 06:07:21 08/12/19 25 08/10/2024 US, abdom en, limit ed No observ ation record ed. [facility] [address] [facility], [place], [address], 08/20/2024 20:18:14 Result Notes None recorded. Problems Name Problem SNOMED Code Status Onset Date Resolution Date Notes Provider Name and Address Organization Details Recorded Time Asthma 580229364 Active 2022 Amrita Urias NP [address] [address], [place], [address], [place] [facility] 3 08:45:44 Essential hypertension 04805946 Active 2022 Amrita Urias NP [address] [address], [place], [address], [place] [facility] 3 08:45:54 Uterine leiomyoma 98666290 Active 2023 YOON TOLBERT PA-C [address] [facility] [address], [place], [address], [place] [facility] 4 22:45:09 Problem Notes None recorded. Procedures Surgical History Date Name Laterality Status Provider Name and Address Organization Details Recorded Time 025 Family Practice Trigger Point Injection completed Sun Wilson, TODD [address] [address], [place], [address], [facility] 10/27/2024 09:23:50 022 Date of Last Pap Smear completed Cristal Hinds [facility] 09/27/2022 15:40:07 009 Breast Surgery completed Amrita Urias, TODD [address] [address], [place], [address], [facility] 07/03/2022 08:52:32 007 Cholecystectomy completed Amrita Urias, [employer] [address] [address], [place], [address], [facility] 07/03/2022 08:52:32 005 Tonsillectomy completed Amrita Urias, TODD [address] [address], [place], [address], [facility] 07/03/2022 08:52:32 Imaging Results None recorded. Procedure Notes None recorded. Medical Equipment None Reported. Allergies Allergen ID Allergen Name Allergen Category Reaction Reaction Severity Criticality Documentation Date Start Date Code Code System Note Provider Name and Address Organization Details Recorded Time 4161 latex environme nt,medica tion hives moderate Not available 09/27/2022 06385 91 RxNorm Gini Stuart [facility] 5 08:35:17 6356 No known allergy (situatio n) Not available Not available Not available Not available 11/29/2023 66011 6003 SNOMED Gloria Jeannette [facility], On license of [facility] 4 10:19:41 Medications Name Sig Start Date Stop Date Status Note LastModified by Organization Details LastModified Time cyclobenz aprine 10 mg tablet TAKE 1 TABLET BY MOUTH EVERY DAY 07/03 completed Not Available Not Available Not Available promethaz ine-DM 6.25 mg-15 mg/5 mL oral syrup TAKE 5 ML EVERY 4-6 HOURS BY ORAL ROUTE NEEDED, FOR FOR COUGH. MAXIMUM 30ML/24H OURS.. 10/12 completed Not Available Not Available Not Available nystatin 100,000 unit/mL oral suspensio n 07/22 completed Not Available Not Available Not Available prednison e 10 mg tablet TAKE 4 TABS DAILY FOR 4 DAYS THEN 3 TABS FOR 3 DAYS THEN 2 TABS FOR 2 DAYS THEN 1 TABELT FOR 1 DAY 12/02 completed Not Available Not Available Not [...] Available Not Available ibuprofen 800 mg tablet Take 1 tablet 3 times a day by oral route as needed for 20 days. 2024 active Not Available Not Available Not Avai lable Claritin 10 mg tablet 10 mg by [...] Not Available amlodipin e 5 mg tablet Take 1.5 tablets every day by oral route for 90 days. 2024 active Not Available Not Available Not Avai lable omeprazol e 40 mg capsule,d elayed release [...] mg tablet,ex tended release 24 hr Take 1 tablet every day by oral route. 10/27 completed Not Available Not Available Not Available amitripty line 10 mg tablet TAKE 1 [...] INHALE 2 INHALATI ONS BY MOUTH DAILY 10/27 completed Not Available Not Available Not Available indometha mike 25 mg capsule take 1 [...] Available Not Available Not Available Vitamin C 10/12 completed Not Available Not Available Not Available Co Q-10 TID active Not Available Not Avail able Not Available DHEA TID active Not Available Not Availa ble Not Available riboflavi n (vitamin B2) 12/02 completed Not Available Not Available Not Available Vitamin D3 active Vitamin D 3000 IU- Vitamin K2 30 mcg po daily Not Available Not Available Not Available Vitamin B12 1000 IU 10/12 completed Not Available Not Available Not Available triamcino lone acetonide 0.1 %-emollie nt comb.no.4 5 topical cream 2022 active Not Available Not Available Not Avai lable Aerochamb er Plus Flow-Vu USE DIRECTED active Not Available Not Available No t Available + DHA active Not Available Not Available Not Available magnesium citrate 100 mg tablet 10/12 completed Not Available Not Available Not Available ascorbic acid (vitamin C) 125 mg chewable tablet 2022 active Not Available Not Available Not Avai lable riboflavi n (vitamin B2) 400 mg tablet 400 mg by oral route. 2023 active Not Available Not Available Not Avai lable magnesium 200 mg (as magnesium oxide) tablet Take 2 tablets as needed by oral route. active Not Available Not [...] blood by Pulse oximetry Heart rate Systolic And Diastolic Provider Name and Address Organization Details Last Updated DateTime 5 162.56 cm 36.8 kg/m2 41480.2 2 g 99 % 99 % 96 /min 136/72 mm[Hg] Gloria Sultanake On license of [facility] 5 12:58:10 Date Recorded Body height Body mass index (BMI) Body weight Heart rate Oxygen saturation Oxygen saturation in Arterial blood by Pulse oximetry Systolic And Diastolic Provider Name and Address Organization Details Last Updated DateTime 5 162.56 cm 35.9 kg/m2 72305.8 1 g 98 /min 99 % 99 % 120/76 mm[Hg] Gini Nunesbelia On license of [facility] 5 09:10:46 Date Recorded Body height Heart rate Oxygen saturation Oxygen saturation in Arterial blood by Pulse oximetry Systolic And Diastolic Provider Name and Address Organization Details Last Updated DateTime 5 162.56 cm 80 /min 98 % 98 % 114/66 mm[Hg] Gini Stuart [place] - [facility] 5 08:37:59 Social History Question Answer Notes LastModified by Organizat ion Details LastModified Time Tobacco Smoking Status Never Smoker Amrita Urias, TODD [address] [facility], [facility] [address], [place], [address], [place] [facility] 07/03/2022 08:51:43 Do You Have An Advance Directive? No Information not available 07/03/2022 What Is Your Level Of Caffeine Consumption? None [email or web address] Information not available 01/29/2023 What Was The Date Of Your Most Recent Tobacco Screening? 05/05/2024 [email or web address] Information not available 05/05/2024 Sex: Unknown Functional Status Question Answer Note LastModified by Organization Details LastModified Time Do you use any illicit or recreational drugs? No marijuana edible and smoking prior to Information not available 01/29/2023 What is your level of alcohol consumption? Occasional not during pregnany; avg of 3 drinks/month prior Information not available 01/29/2023 Do you or [...] 18:54:17 Medical History Condition Response Obesity Y Reflux/GERD Y Colonoscopy Y Eczema Y Headaches Y Hypertension Y Asthma Y Substance Use N Gynecological History Statement/Question Response Date of Last Pap Smear 01/05/2022 Obstetrics History GPAL:G 0 P 0 0 0 0 Immunizations Vaccine Type Date Status Note Provider Nam e and Address Organization Details Recorded Time Influenza, split virus, quadrivalent, preservative 0 [facility] 15:40:18 Influenza, split virus, quadrivalent, preservative 1 [facility] 09/27/2022 15:40:19 Influenza, split virus, quadrivalent, preservative 8 completed Cristal [facility] 09/27/2022 15:40:19 COVID-19, mRNA, LNP-S, PF, 100 mcg/0.5mL dose or 50 mcg/0.25mL dose 1 completed Cristal Burlingham null, [place] - [facility] 09/27/2022 15:40:19 COVID-19, mRNA, LNP-S, PF, 100 mcg/0.5mL dose or 50 mcg/0.25mL dose 1 completed Cristal Burlingham null, [place] - [...] mcg/0.3 mL 4 completed YOON TOLBERT PA-C [address] [facility] [address], [place], [address], [place] [facility] 05/05/2024 16:23:23 Influenza, MDCK, trivalent, PF 4 completed YOON TOLBERT PA-C [address] [facility] [address], [place], [address], [place] [facility] 05/05/2024 16:23:23 Past Encounters Encounter ID Performer Location Encounter Start Date Encounter Closed Date Diagnosis/Indication Diagnosis SNOMED-CT Code Diagnosis ICD10 Code Diagnosis IMO Codes Diagnosis Note [id number] Amrita Urias NP Main Office [address] [place] [address] [address] [facility] 1 07/03/2022 08:35:17 07/03/2022 09:07:09 Essential hypertension 90266578 I10 Increase amlodipine to 7.5 mg daily. ADvised on possible s/e including dizziness, ankle swelling, etc. She will monitor @ home. Headache 35445725 R51.9 Refer to ENT to complete work up.Headach es generally better with addition of riboflavin . Screening for cardiovascular system disease 340247281 Z13.6 Check screening labs before physical. [id number] Sun Wilson NP Main Office [address] [place] [address] [address] [place] [place] [address] 09/27/2022 15:36:29 09/27/2022 16:02:42 Unilateral left sided headache 9510501414 R51.9 Ongoing for 14 months. When discussing [...] will make those referral for her today. [id number] Amrita Urias NP Main Office [address] [place] [address],[facility] [address] [facility] [place] [address] 11/06/2022 09:24:33 11/06/2022 09:56:18 Headache due to exertion 5907623979 04383 G44.84 Recommenda tions from neurologis t Dr. Matson are reasonable .Will check for any vascular anomaly as below. MRI brain w/w/o contrast already been ordered, wonder if they can be combined.I f secondary causes r/o, will trial indomethac in as below. Pt is aware of GI effects (she is [employer]), consider co-adminis tration with PPI.Pt does have follow up with [facility] in November. [id number] Amrita Urias NP Main Office [address] [place] [address],[address] [facility] [address] 12/25/2022 09:02:28 12/25/2022 09:37:49 Gastroesophageal reflux disease 006232153 K21.00 With max OTC dosing PPI, referral to GI for likely EGD is reasonable . Will switch to pantoprazo le BID, may offer more benefits. Call if symptoms worsen before GI referral. Chronic constipation 236 186607 K59.09 Improved with OTC magnesium, and recommenda tions from functional medicine provider. Will defer decision regarding colonoscop y to GI. [id number] YOON TOLBERT PA-C Main Office [address] [place] [address],[address] [facility] [address] 01/29/2023 11:00:38 01/29/2023 12:09:20 Active or passive immunization 332522215 Z23 already obtained flu and covid shots 12/28/22 Adult heal th examination 093596057 Z00.00 Gastroesop hageal reflux disease 160718901 K21.9 Was planning to obtain an endoscopy prior to , but plans to wait until after at this time. Symptoms well controlled with pepcid thus far. Discussed the risk of worsening GERD symptoms during , pt plans to reach out to gastroente rologist if needed. Reviewed lifestyle modificati ons. Asthma 326367358 J45.90 9 Well controlled . Requesting refill on spacer at this time [id number] YOON TOLBERT PA-C Main Office [address] [facility],[address] [place] [address] 07/23/2023 11:38:44 07/23/2023 13:52:45 Acute pelvic pain 951952267 R10.2 Case discussed with Sun Wilson NP.Ddx: acute cystitis, endometrit is, cervicitis , ovarian cyst rupture, vs ectopic (low risk given recent LMP in last 2 weeks)Plan :- Will obtain labs and pelvic US as below. Will plan to f/u with [facility] gynecology 08/05/23.- ED criteria provided. Venereal d isease screening 073480795 Z11.3 Low back pain 614409999 M54.50 2 day history of acute back [...] return for a nursing visit for such. [id number] YOON TOLBERT PA-C Main Office [address] [place], [place] [address] [address] [place] [address] 08/20/2023 08:21:51 08/20/2023 08:59:50 Low back pain 197514722 M54.50 Assessment - Concern for muscular sprain/spa sm, sacroiliit is, disc impingemen t/bulge, lumbar radiculopa thy (less likely in the absence of neurologic al sx)Plan- Referral to physical therapy- Continue with ice and heat, 20 minutes on, 20 minutes off- Continue with Tylenol/ib uprofen PRN, ice, heat, Lidocaine patches- continue walking as much as possible- Strict ED criteria provided [id number] YOON TOLBERT PA-C Main Office [address] [place] [address],[address] [place] [address] 09/24/2023 08:25:33 09/24/2023 09:20:42 Low back pain 166046684 M54.50 Assessment - Concern for muscular sprain/spa sm, sacroiliit is, disc impingemen t/bulge, lumbar radiculopa thyPlan- Continue with physical therapy- Continue with ice and heat, 20 minutes on, 20 minutes off- Continue with Tylenol/ib uprofen PRN, ice, heat, Lidocaine patches, +/- turmeric supplement - continue walking as much as possible- Strict ED criteria provided [id number] YOON TOLBERT PA-C Main Office [address] [facility],[address] [place] [address] 12/03/2023 10:40:35 12/03/2023 10:56:49 Low back pain [id number] M54.50 Assessment - Persistent , intermitte nt [...] Strict ED criteria provided Mass of skin 566595226 R 22.9 A singular, circular, jeanne-siz ed, well defined, soft, mobile, nontender mass palpated right paralumbar region, approximat alma 3 inches lateral from spine. Ddx includes lipoma, cyst, abscess, malignancy . We reviewed that this is most likely consistent with a lipoma, but will request consult from dermatolog y at this time for eval & management . [id number] YOON TOLBERT PA-C Main Office [address] [place] [address],[address] [place] [address] 05/05/2024 12:51:44 05/05/2024 13:28:53 Active or passive immunization [id number] Z23 Up to date on flu, covid, and tetanus. Adult heal th examination 165834031 Z00.00 Will be eligible for 1st mammo 10/2023- prefers to discuss ordering at next visit.Up to date on cervical ca screen. Trying to conceive [id number] Z31.9 May request future referral to [facility]. Elevated blood-pressure reading without diagnosis of hypertension [id number] R03.0 Monitors BP once weekly at home. Typically 120s/80-90 mmHg. Will continue to monitor routinely. Counseled on role of hydration, physical activity, reduced salt consumptio n. Mass of skin 527250748 R 22.9 A singular, circular, jeanne-siz ed, [...] this time for eval & management . [id number] ALBERT GASTON [facility] [address] [facility] [address] [place] [address] 06/22/2024 09:57:23 06/22/2024 11:29:15 Lipoma of back 622728521 D17.1 1362696 [id number] Noris Monroy RN Main Office [address] [facility],[address] [place] [address] 07/27/2024 14:27:53 07/27/2024 15:56:13 Dehydration 16341495 E86.0 [id number] AZUCENA GUTIERREZC Main Office [address] [facility],[address] [place] [address] 10/12/2024 09:02:46 10/12/2024 09:29:54 Peroneal tendinitis of right lower limb [id number] 70356 M76.71 6066029 Suspected peroneal tendinitis of bilateral lower extremitie s, worse on right foot.- Continue physical therapy- Continue use of supportive shoes with wide toe-base- Referral to podiatry for further eval/manag ement Screening mammography 24 069543 Z12.31 8720025 Chronic back pain 403939 002 M54.9 G89.29 1538164 As above. Chronic low back pain 27 1545626 M54.50 G89.29 [id number] Persisting , intermitte nt pain in trapezius and lumbar regions. Previous MRI consistent with mild degenerati ve changes at L4-L5 and L5-S1. Beneficial therapeuti cs include trigger point injections , heat, for therapy, physical activity, and rest.- Continue with physical therapy HEP, walking, core/back resistance training- Continue with heat, 20 minutes on, 20 minutes off as well as photothera py mat- Continue with Tylenol/ib uprofen PRN, ice, heat, Lidocaine patches, +/- turmeric supplement Screening for cardiovascular system disease 178645761 Z13.6 909045 Diabetes m ellitus screening 151956312 Z13.1 440892 Thyroid di sorder screening 482473122 Z13.29 464140 Screening for disorder 925917303 Z13.21 17728000 [id number] Sun Wilson NP Main Office [address] [place], [place] [address] [place] [address] 10/27/2024 08:30:09 10/27/2024 09:44:21 Myofascial trigger point [id number] 46874 M79.10 277894 Injections done today. Health Concerns Section Related Observation LastModified by Organization Detai ls LastModified Time None Recorded Concern Status LastModified by Organization Details LastModified Time None Recorded Advance Directives Directive N: Payers Insurance Date Sequence Insurance Name Policy Number Policy Amos Covered Member ID Amos Member ID Guarantor Name 08/01/2024 1 [facility] (POS) [id number] Pascale Maddox Alysha [id number] Pascale Killianchristie 08/01/2024 1 [facility] Pascale Ledbetter [id number] Pascale Killianchristie 08/01/2024 1 [facility] [id number] Pascale Killianjulioy [id number] Pascale Killianjulioy 10/12/2024 1 *SELF PAY* Ca jovanni Killianjulioy 10/12/2024 1 *SELF PAY* Ca jovanni Killianjulioy 08/01/2024 1 [employer] 6 Sandor Killianchristie [id number] Pascale Killianjulioy 10/12/2024 [employer] OF [facility] (EPO) [id number] Pascale Killianjulioy [id number] Pascale Killianpey 10/26/2024 1 [employer] OF [facility] (PPO) [id number] Pascale Killianjulioy [id number] Pascale Killianchristie Notes Date Note Type Note Provider Name and Address Organization Details Recorded Time 05/05/2024 text/html ROS as noted in the HPI Pascale Encarnacion, a 38-year-old female, presents for an annual exam. She is planning to start a new job in at [facility]. 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 YOON TOLBERT PA-C [address] [facility], [facility] [address], [place], [address], [place] [facility] 05/05/2024 16:36:49 06/22/2024 text/html ROS as noted in the HPI Patient has a nodule on the back. Present for about 1 year, is not painful or growing. Patient declined CSE today. ALBERT GASTON [address] [facility], [facility] [address], [place], [address], [place] [facility] 06/25/2024 13:51:15 07/27/2024 text/html The patient is here for elective IV hydration, to treat dehydration They will be receiving alleviate. Add ons: toradol to treat pain.They have been screened for contraindications to IV therapy including previous adverse reaction to IV therapy. Dar Tinoco, [address] [facility], [facility] [address], [place], [address], [place] [facility] 08/03/2024 05:51:55 10/12/2024 text/html ROS as noted in the HPI Here for a problem visit regarding back/leg concerns as below. Experiences chronic back pain- upcoming trigger point injections scheduled for 10/27/24 at this office.Pain rated currently as 4/10, although reportedly ebbs and flows. Improves with phototherapy neck, heat, NSAIDs as needed. Will plan to work through pain management at [facility]. Remains quite physically active, performing frequent walks and upper/lower body resistance training at the gym 3x/week with use of exercise machines. Patient is also experiencing chronic pain in lateral aspect of foot/ankle of bilateral lower extremities (R>L). Pain exacerbated by standing patient reports a historical injury following an ankle sprain in September 2023 after tripping over a dip in the pavement while walking outside of [employer] and looking at her phone. Kelly and Justina benson offer support. Previously seen by [facility] urgent ortho for this issue 1 year ago. Started PT 2 weeks ago. Recently obtained custom shoe inserts and started wearing Godfrey shoes while working. Denies any redness, swelling, physical deformities, or prior fractures. YOON TOLBERT PA-C [address], [address], [place] [facility] 10/12/2024 11:56:33 10/27/2024 text/html ROS as noted in the HPI Here for trigger point injections of the trapezius and lats. She is being followed by [facility] moving forward. Sun Wilson NP [address] [facility] [address], [place], [address], [place] [facility] 10/27/2024 09:24:24 OBGyn Episode No OBEpisode recorded.
--- OUTSIDE RECORDS SUMMARY | 2024-12-09 07:29 | XMS_ITS | Clinical Summary ---
Author Organization [facility] Address [address] [address] Phone Care Team Providers Care Eyeletter Name Role Phone Amrita Urias TIRE FIXER Primary Care Provider Allergies No known active [...] 11/05/2019 INFLUENZA VACCINE (#1) 2024 COVID-19 VACCINE (2024-2 6 season) 2024 MAMMOGRAM 2024 SMOKING STATUS SCREENING (On ce After [...] topic Medical Devices Not on file Insurance [employer] Bond[employer] ROCÍO LEON [id number] UNITED SUREST UNITED SUREST Care Teams Eyeletter Relationship Specialty Start Date End Date Amrita Urias NP [address] [facility] [address] [place] [address] [email or web address] PCP - General Nurse Practitioner 10/10/23 Additional Source Comments The information contained in this document represents components of the legal health record. It is not the complete legal health record.[facility]
== END 2024-12-09 07:25 | disposition home or self-care (01) ==
LOC: HO.XRAY 07:24
PROVIDERS: PCP Physician Assistant; Visit Provider Nurse Practitioner
DX: M53.3 Sacrococcygeal disorders, not elsewhere classified (principal)
CPT/HCPCS: 72200

== ENCOUNTER → 2024-12-09 07:30 | Outpatient (BNV) | payer OTHER, SELFPAY | PROVIDERS: PCP Physician Assistant; Visit Provider Radiology Diagnostic Radiology | DX: M53.3 Sacrococcygeal disorders, not elsewhere classified (principal) | CPT/HCPCS: 72200 ==

== ENCOUNTER 2024-12-14 10:14 | Outpatient (AMB) | payer OTHER, SELFPAY ==
[2024-12-14 10:21] VITALS: BP 122/82; PULSE 78; RESP 16; O2SAT 99
--- NOTE | 2024-12-14 10:21 | A.OFFVIS_ITS ---
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: No Allergies latex Adverse Reaction (Severe, Verified 12/14/24 10:23) Rash Medication List - Last Reconciled 12/14/24 by Jaki Roy LPN amlodipine 7.5 mg PO DAILY beclomethasone dipropionate 40 mcg/actuation (Qvar RediHaler) inhalation [id number] 500 mcg-250 mcg-50 mg-50 mg caps PO loratadine (Allergy Relief (loratadine)) 10 mg PO DAILY montelukast 10 mg PO DAILY pantoprazole mg PO riboflavin (vitamin B2) 400 mg PO DAILY HPI HPI Follow up back pain: Details: History of Present Illness The patient is a 39-year-old female presenting with lower back pain and abdominal involvement. The back pain flared a week ago with significant discomfort across the lower back, later localizing to the right side when seated. The pain was initially thought to be improving but worsened suddenly, leading to a flare-up. The patient has been managing the pain with prednisone and muscle relaxers, which have provided some relief. An x-ray was performed and showed no abnormalities, and the patient has concerns about possible iliopsoas involvement due to the acute onset and pain with hip flexion. The patient has a history of degenerative disc disease, but the current symptoms do not correlate with previous experiences of this condition. The patient has undergone physical therapy focusing on core and back exercises, but not specifically targeting the iliopsoas muscle. The patient has experienced a change in job from active to sedentary, which coincides with the onset of symptoms. The patient has also tried an aqua class as part of the management strategy. Pain Description - Onset: A week ago with significant discomfort across the lower back, localizing to the right side when seated - Quality: Feels like being stuck, with acute onset and pain with hip flexion - Location: Lower back, right side, radiating to the front - Exacerbating factors: Prolonged sitting, hip flexion - Relieving factors: Prednisone, muscle relaxers Physical Exam - Abdominal: Tenderness to deep palpation in the right lower quadrant Results - X-ray: No abnormalities detected - MRI: No paraspinal muscle problems, iliopsoas tendon/bursa appears normal Pain Management - Affect: Pain impacting daily activities and psychological wellbeing - Analgesia: Prednisone and muscle relaxers used, providing some relief - Adverse Effects: None reported - Activities of Daily Living: Pain interferes with prolonged sitting and hip flexion - Aberrant Drug Related Behaviors: None reported [facility] Medical History (Updated 11/04/24 @ 12:25 by Chito Antonio MD) Essential hypertension Asthma Low back strain Physical Exam Vital Signs: Last Vital Signs Pulse 78 12/14/24 10:21 Resp 16 12/14/24 10:21 BP 122/82 12/14/24 10:21 Pulse Ox 99 12/14/24 10:21 Oxygen Delivery Method Room Air 12/14/24 10:21 Assessment & Plan Assessment & Plan (1) Sacroiliac dysfunction: Code(s): M53.3 - Sacrococcygeal disorders, not elsewhere classified Category: Medical (2) Lumbar spondylosis: Code(s): M47.816 - Spondylosis without myelopathy or radiculopathy, lumbar region Category: Medical (3) Discogenic lumbar pain: Code(s): M51.360 - Other intervertebral disc degeneration, lumbar region with discogenic back pain only Category: Medical Plan Plan Patient was informed and verbally consented to the use of an ambient scribe for clinic note documentation during this visit. 1. Lower Back Pain - Plan to perform diagnostic injections to identify the source of pain, including SI joint and abdominal wall blocks - Consideration of musculoskeletal causes due to positional nature of pain - Continue current medication regimen p.r.n 2. Iliopsoas Involvement - MRI findings show no abnormalities in the iliopsoas tendon 3. Degenerative Disc Disease - Current symptoms do not correlate with previous experiences of degenerative joint disease - Explore other potential causes before attributing symptoms to degenerative joint disease 4. SIJ Dysfunction - Right lateralizing low back discomfort could be secondary to SI joint dysfunction. We will proceed with a diagnostic right SI joint injection as a next step in management. Can consider lumbar facet blocks and abdominal plane blocks for diagnostic purposes in the future. Discussion Notes During the visit, we discussed the potential causes of the patient's pain, including the possibility of iliopsoas involvement and degenerative joint disease. We reviewed the MRI and x-ray findings, which showed no significant abnormalities. I explained the process and purpose of diagnostic injections to help identify the source of pain. We also discussed the limitations of imaging in diagnosing pain and the importance of exploring other potential causes. Patient Instructions - Continue taking prednisone and muscle relaxers as prescribed. - Schedule diagnostic injections as discussed to help identify the source of pain. - Engage in physical therapy focusing on core strengthening and flexibility exercises. - Monitor symptoms and report any changes or worsening of pain. Coding Level of Care Code Est Pt Level 4 (21628) Diagnoses Sacroiliac dysfunction M53.3 Lumbar spondylosis M47.816 Discogenic lumbar pain M51.360
== END 2024-12-14 11:21 | disposition home or self-care (01) ==
LOC: HO.PMC 10:14
PROVIDERS: PCP Physician Assistant; Visit Provider Internal Medicine
DX: M53.3 Sacrococcygeal disorders, not elsewhere classified (principal); M47.816 Spondylosis without myelopathy or radiculopathy, lumbar region; M51.360 Other intervertebral disc degeneration, lumbar region with discogenic back pain only
CPT/HCPCS: 99214

== ENCOUNTER 2025-01-28 07:35 | Outpatient (REF) | payer OTHER, SELFPAY ==
--- NOTE | ~2025-01-28 | MM_ITS ---
EXAMINATION: MM SCREENING DIGITAL BREAST TOMOSYNTHESIS, BILATERAL CLINICAL INFORMATION: Screening. Asymptomatic. COMPARISON: Mammography: Baseline mammogram. TECHNIQUE: Digital breast mammography with tomosynthesis is performed in both the craniocaudal and mediolateral oblique views along with computer-aided detection (CAD). FINDINGS: There are scattered areas of fibroglandular density. Bilateral reduction mammoplasty changes. There are no significant masses, abnormal calcifications, or other abnormalities. MM/MM tomosynthesis screening BI IMPRESSION: No mammographic evidence of malignancy. ASSESSMENT: BI-RADS Category 2: Benign RECOMMENDATION: Routine annual mammography screening. 1 year F/U This examination should not preclude the clinical evaluation of a suspicious palpable abnormality. This patient's information was entered into a reminder system with a target due date for their next mammogram. Electronically signed by: Toshia Bonilla DO 01/29/2025 05:56 PM ANNA
--- OUTSIDE RECORDS SUMMARY | 2025-01-28 07:38 | XMS_ITS | Clinical Summary ---
Author Organization [facility] Address [address] [place] [address] Phone Care Team Providers Care Water Resource Agent Name Role Phone Yoon Spence Primary Care Provider [phone] Allergies No known active allergies Medications riboflavin, [...] Information Value Date Recorded Sex Assigned at Female 12/22/2024 12:28 PM EDT Legal Sex Female 3:30 PM EST Gender Identity Female 12/22/2024 12:28 PM EDT Sexual Orientation Straight 12/22/2024 12 :28 PM EDT Last Filed Vital Signs Vital Sign Reading [...] 11/05/2019 INFLUENZA VACCINE (#1) 2024 COVID-19 VACCINE ( - 2024-2 6 season) 2024 MAMMOGRAM 2024 SMOKING STATUS [...] topic Medical Devices Not on file Insurance [employer]MIN[employer]AT[employer]ENEFITS [employer]MIN[employer]AT[employer]ENEFITS [employer]ORS [employer] BENEFITS ADMINISTR[place] [address] [address] ADMINISTRATORS Care Teams Water Resource Agent Relationship Specialty Start Date End Date Yoon Spence PA [address] [place] [id number] [email or web address] PCP - General Physician Curtain Stretcher Assembler 12/22/24 Additional Source Comments The information contained in this document represents components of the legal health record. It is not the complete legal health record.[facility]
== END 2025-01-28 07:36 | disposition home or self-care (01) ==
LOC: HO.MAMMO 07:35
PROVIDERS: PCP Physician Assistant; Visit Provider Physician Assistant
DX: Z12.31 Encounter for screening mammogram for malignant neoplasm of breast (principal)
CPT/HCPCS: 77063; 77067

== ENCOUNTER → 2025-01-28 07:45 | Outpatient (BNV) | payer OTHER, SELFPAY | PROVIDERS: PCP Physician Assistant; Visit Provider Internal Medicine | DX: Z12.31 Encounter for screening mammogram for malignant neoplasm of breast (principal) | CPT/HCPCS: 77063; 77067 ==

== ENCOUNTER 2025-01-31 14:47 | Outpatient (REF) | payer OTHER, SELFPAY ==
--- NOTE | ~2025-01-31 | MR_ITS ---
EXAMINATION: MR ANKLE WITHOUT CONTRAST, LEFT CLINICAL INFORMATION: Pain . Patient reports lateral side pain. COMPARISON: Tibiotalar joint articulation is maintained. TECHNIQUE: MRI of the ankle was performed using routine sequences on a high-field scanner. FINDINGS: BONE/JOINTS: Tibiotalar articulation is maintained. No evidence of acute fracture or dislocation. No talar OCD. No aggressive marrow replacing lesion. No significant tibiotalar joint effusion. MUSCLES/TENDONS: Small posterior tibial physiological fluid versus trace tenosynovitis. Medial flexor tendons are intact. Peroneal, extensor tendons are intact. Mild edema in the flexor hallucis longus myotendinous region, could represent strain. LIGAMENTS: Talofibular tibiofibular ligaments are intact. Mild deltoid ligament heterogeneity, possible mild sprain. ACHILLES TENDON: Intact. PLANTAR FASCIA: Intact. Mild edema in the soft tissues along the plantar aspect of the fascia, could reflect pressure changes versus clinically correlate for possible mild fasciitis. SINUS TARSI: Normal signal. TARSAL TUNNEL : No mass lesion. SUBCUTANEOUS SOFT TISSUES: No fluid collections. MR/MR ankle LT wo con IMPRESSION: 1. No acute osseous findings. No acute fracture or dislocation. 2. Posterior tibial physiological fluid versus mild tenosynovitis. 3. Mild flexor hallucis longus myotendinous edema, could represent strain. 4. Nonspecific soft tissue edema along the plantar aspect of the plantar fascia, could reflect pressure changes, versus clinically correlate for possible mild fasciitis. 5. Possible mild deltoid ligament chronic sprain. Electronically signed by: Miah Naik MD 02/01/2025 09:16 AM [facility]
--- NOTE | ~2025-01-31 | MR_ITS ---
EXAMINATION: MR ANKLE WITHOUT CONTRAST, RIGHT CLINICAL INFORMATION: Patient reports Ankle pain, mostly lateral. Patient reports sprain 2023 COMPARISON: None available. TECHNIQUE: MRI of the ankle was performed using routine sequences on a high-field scanner. FINDINGS: BONE/JOINTS: Tibiotalar articulation is maintained. No evidence of acute fracture or dislocation. No talar OCD. No aggressive marrow replacing lesion. Small talonavicular joint effusion. MUSCLES/TENDONS: Small posterior tibial physiological fluid versus mild tenosynovitis. Mild edema in the FHL myotendinous region could reflect strain. FHL physiological fluid. Peroneal, extensor tendons are intact. LIGAMENTS: Talofibular, tibiofibular, calcaneofibular ligaments are intact. Intact deltoid ligament Lisfranc ligament is grossly intact ACHILLES TENDON: Intact. PLANTAR FASCIA: Intact. Mild edema in the plantar soft tissues in the region of the fascia, could represent pressure changes, clinically correlate. Mild fasciitis. SINUS TARSI: Normal signal TARSAL TUNNEL : No mass lesion SUBCUTANEOUS SOFT TISSUES: Mild subcutaneous edema MR/MR ankle RT wo con IMPRESSION: 1. No acute fracture or dislocation. 2. Small talonavicular joint effusion. 3. Posterior tibial tendon small physiological fluid versus mild tenosynovitis. 4. Mild FHL edema in the myotendinous region, could represent strain. 5. Mild edema in the plantar soft tissues in the region of the plantar fascia could represent pressure changes versus clinically correlate for possible mild fasciitis. Electronically signed by: Miah Naik MD 02/01/2025 09:14 AM [facility]
--- OUTSIDE RECORDS SUMMARY | 2025-01-31 14:51 | XMS_ITS | Data Portability ---
Author Organization [facility], [employer] Address [address] [place] [phone] Assessment Encounter Date Assessment Date Assessment LastModified [...] desired, seek a second opinion from a defensive line coach regarding a suspected lipoma, with the option to make an appointment without a referral. Appointments - Appointment with a fertility specialist in [place]. - Eye exam scheduled for August 2024. Not available 05/05/2024 16:36:42 06/22/2024 06/22/2024 1. [...] additional diagnostic testing or treatment (one needed): [email or web address] Not available 10/12/2024 11:55:38 Plan of Treatment Reminders Order Date Submit Date Provider Last Modified By Organization Details Last Modified Time Details Appointments Annual Exam 2025 11:00A M YOON TOLBERT PA-C Not available Not available Not available Lab vitamin D, 25-hydrox y, total, serum 2024 026 [email or web address] [facility], [address], [place], [address], 10/12/2024 09:43:50 TSH, ultra-sen sitive, serum 2024 026 [email or web address] [facility], [address], [place], [address], 10/12/2024 09:43:51 lipid panel, serum 2024 026 [email or web address] [facility], [address], [place], [address], 10/12/2024 09:43:51 CBC 2024 026 [email or web address] [facility], [address], [place], [address], 10/12/2024 09:43:51 CMP, serum or plasma 2024 026 [email or web address] [facility], [address], [place], [address], 10/12/2024 09:43:51 HbA1c (hemoglob in A1c), blood 2024 026 [email or web address] [facility], [address], [place], [address], 10/12/2024 09:43:51 insulin, serum 2024 026 [email or web address] [facility], [address], [place], [address], 10/12/2024 09:43:51 Referral podiatris t referral 2024 025 BONNY Avalos DPM, [address] [place], [address], 10/16/2024 15:06:07 Procedures None recorded. Surgeries None recorded. Imaging MAMMO, screening , digital, bilateral [email or web address] (Imaging), [address] [place] [address], [address], 10/15/2024 11:04:44 US, abdomen, limited - painful mass R lower back. r/o lipoma 2024 025 [facility] (Imaging), [address] [place] [address], [address], 08/11/2024 07:14:12 Medication Orders None recorded. Patient TargetsNo targets recorded. Patient Instructions Encounter Date Encounter Id Patient Instructions Last Modified By Organization Details Last Modified Time 05/05/2024 [id number] dash diet: care instructions [email or web address] Not available 05/05/2024 16:36:42 Reason for Referral Palliative Care Nurse Referral for Dixie brock tendinitis of right lower limb Referring Physician: Yoon Tolbert, Family Medicine, Encounter Date: 10/12/2024 Results Created Date Observation Date Name Description Value Unit Range Abnormal Flag Note LastModifiedBy Organization Detail LastModifiedTime 05/05/1905/04/2024 COMP. METAB OLIC PANEL (14) glucose 83 mg/dL 70-99 normal Not Available [facility] ([facility]) [address] [place], [address], 05/05/2024 06:07:19 05/05/1905/04/2024 COMP. METAB OLIC PANEL (14) BUN 12 mg/dL 6-20 normal Not Available [facility] ([facility]) [address] [place], [address], 05/05/2024 06:07:19 05/05/19 25 05/04/2024 COMP. METAB OLIC PANEL (14) creatinine 0.77 mg/dL 0.57-1 .00 normal Not Available [facility] ([facility]) [address] [place], [address], 05/05/2024 06:07:19 05/05/19 25 05/04/2024 COMP. METAB OLIC PANEL (14) eGFR 101 mL/mi n/1.7 3 >59 normal Not Available [facility] ([facility]) [address] [place], [address], 05/05/2024 06:07:19 05/05/19 25 05/04/2024 COMP. METAB OLIC PANEL (14) BUN/creatini ne ratio 16 9-23 normal Not Available [facility] ([facility]) [address] [place], [address], 05/05/2024 06:07:19 05/05/19 25 05/04/2024 COMP. METAB OLIC PANEL (14) sodium 139 mmol/ L 134-14 4 normal Not Available [facility] ([facility]) [address] [facility] [place], [address], 05/05/2024 06:07:19 05/05/19 25 05/04/2024 COMP. METAB OLIC PANEL (14) potassium 4.2 mmol/ L 3.5-5. 2 normal Not Available [facility] ([facility]) [address] [facility] [place], [address], 05/05/2024 06:07:19 05/05/19 25 05/04/2024 COMP. METAB OLIC PANEL (14) chloride 103 mmol/ L 96-106 normal Not Available [facility] ([facility]) [address] [facility] [place], [address], 05/05/2024 06:07:19 05/05/19 25 05/04/2024 COMP. METAB OLIC PANEL (14) carbon dioxide, total 24 mmol/ L 20-29 normal Not Available [facility] ([facility]) [address] [facility] [place], [address], 05/05/2024 06:07:19 05/05/19 25 05/04/2024 COMP. METAB OLIC PANEL (14) calcium 8.6 mg/dL 8.7-10 .2 below low normal Not Available [facility] ([facility]) [address] [facility] [place], [address], 05/05/2024 06:07:19 05/05/19 25 05/04/2024 COMP. METAB OLIC PANEL (14) protein, total 6.4 g/dL 6.0-8. 5 normal Not Available [facility] ([facility]) [address] [facility] [place], [address], 05/05/2024 06:07:19 05/05/19 25 05/04/2024 COMP. METAB OLIC PANEL (14) albumin 4.1 g/dL 3.9-4. 9 normal Not Available [facility] ([facility]) [address] [facility] [place], [address], 05/05/2024 06:07:19 05/05/19 25 05/04/2024 COMP. METAB OLIC PANEL (14) globulin, total 2.3 g/dL 1.5-4. 5 Not Available [facility] ([facility]) [address] [facility] [place], [address], 05/05/2024 06:07:19 05/05/19 25 05/04/2024 COMP. METAB OLIC PANEL (14) bilirubin, total <0.2 mg/dL 0.0-1. 2 Not Available [facility] ([facility]) [address] [facility] [place], [address], 05/05/2024 06:07:19 05/05/19 25 05/04/2024 COMP. METAB OLIC PANEL (14) alkaline phosphatase 65 IU/L 44-121 normal Not Available [facility] [address] [facility] [place], [address], 05/05/2024 06:07:19 05/05/19 25 05/04/2024 COMP. METAB OLIC PANEL (14) AST (SGOT) 19 IU/L 0-40 normal Not Available [facility] ([facility]) [address] [place], [address], 05/05/2024 06:07:19 05/05/19 25 05/04/2024 COMP. METAB OLIC PANEL (14) ALT (SGPT) 15 IU/L 0-32 normal Not Available [facility] ([facility]) [address] [place], [address], 05/05/2024 06:07:19 05/05/19 25 05/04/2024 LIPID PANEL cholesterol, total 192 mg/dL 100-19 9 normal Not Available [facility] ([facility]) [address] [facility] [place], [address], 05/05/2024 06:07:20 05/05/19 25 05/04/2024 LIPID PANEL triglyceride s 70 mg/dL 0-149 normal Not Available [facility]) [address] [facility] [place], [address], 05/05/2024 06:07:20 05/05/19 25 05/04/2024 LIPID PANEL HDL cholesterol 55 mg/dL >39 normal Not Available [facility]) [address] [place], [address], 05/05/2024 06:07:20 05/05/19 25 05/04/2024 LIPID PANEL VLDL cholesterol sharlene 13 mg/dL 5-40 Not Available [facility] ([facility]) [address] [place], [address], 05/05/2024 06:07:20 05/05/19 25 05/04/2024 LIPID PANEL LDL chol calc ([facility]) 124 mg/dL 0-99 above high normal Not Available [facility] ([facility]) [address] [place], [address], 05/05/2024 06:07:20 05/05/19 25 05/04/2024 LIPID PANEL 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 Not Available [facility] ([facility]) [address] [place], [address], 05/05/2024 06:07:20 05/05/19 25 05/05/2024 IRON AND TIBC iron bind.cap.(TI BC) 341 ug/dL 250-45 0 normal Not Available [facility] ([facility]) [address] [place], [address], 05/05/2024 06:07:20 05/05/19 25 05/05/2024 IRON AND TIBC UIBC 285 ug/dL 131-42 5 normal Not Available [facility] ([facility]) [address] [facility], [place], [address], 05/05/2024 06:07:20 05/05/1905/05/2024 IRON AND TIBC iron 56 ug/dL 27-159 normal Not Available [facility] ([facility]) [address] [facility], [place], [address], 05/05/2024 06:07:20 05/05/19 25 05/05/2024 IRON AND TIBC iron saturation 16 % 15-55 normal Not Available [facility] ([facility]) [address] [facility], [place], [address], 05/05/2024 06:07:20 05/05/1905/04/2024 HEMOG LOBIN A1C hemoglobin A1C 5.3 % 4.8-5. 6 normal Predi abete s: 5.7 - 6.4 Diabe destini: >6.4 Glyce carlie contr ol for adult s with diabe destini: <7.0 Not Available [facility] ([facility]) [address] [facility], [place], [address], 05/05/2024 06:07:20 05/05/1905/05/2024 VITAM IN D, 25-HY [...] and D. Luis smith [place]: [facility] . 2. Darvin hurtado [place], Kacie aceves [place], Bisch off-F errar i FIGUEROA, et al. Evalu ation , treat ment, and preve ntion of vitam in D defic iency : an Endoc rine Socie ty clini sharlene pract ice guide line. JCEM. 2010; 96(7) :1911 -30. Not Available [facility] ([facility]) [address] [facility], [place], [address], 05/05/2024 06:07:21 05/05/19 25 05/05/2024 INSUL IN insulin 11.8 uIU/m L 2.6-24 .9 normal Not Available [facility] ([facility]) [address] [place], [address], 05/05/2024 06:07:21 05/05/19 25 05/05/2024 MARA TIN ferritin 31 NG/mL 15-150 normal Not Available [facility] ([facility]) [address] [facility], [place], [address], 05/05/2024 06:07:21 08/12/19 25 08/10/2024 US, abdom en, limit ed No observ ation record ed. [facility] [address], [place], [address], 08/20/2024 20:18:14 12/10/19 25 12/09/2024 XR, sacro iliac joint (s) No observ ation record ed. [email or web address] [facility] (Medical Records) [address] [facility], [place], [address], 12/09/2024 08:12:55 01/30/20 25 01/28/2025 MAMMO , scree yahaira, digit al, bilat eral No observ ation record ed. [facility] (Radiology) [address], [place], [address], 01/29/2025 18:01:41 Result Notes None recorded. Problems Name Problem SNOMED Code Status Onset Date Resolution Date Notes Provider Name and Address Organization Details Recorded Time Asthma 227393129 Active 2022 Amrita Urias, TODD [address] [facility] [facility] [address], [place], [address], [place] [facility] 3 08:45:44 Essential hypertension 32295832 Active 2022 Amrita Urias, TODD [address] [facility], [place], [address], [place] [facility] 3 08:45:54 Uterine leiomyoma 43601599 Active 2023 YOON TOLBERT PA-C [address] [facility], [address], [place], [address], [place] [facility] 4 22:45:09 Problem Notes None recorded. Procedures Surgical History Date Name Laterality Status Provider Name and Address Organization Details Recorded Time 025 [facility] Trigger Point Injection completed Sun Wilson NP [address] [facility], [facility] [address], [place], [address], [place] [facility] 10/27/2024 09:23:50 022 Date of Last Pap Smear completed Cristal Hinds [place] - [facility] 09/27/2022 15:40:07 009 Breast Surgery completed Amrita Urias NP [address] [address], [place], [address], [place] [facility] 07/03/2022 08:52:32 007 Cholecystectomy completed Amrita Urias NP [address] [facility] [address], [place], [address], [place] [facility] 07/03/2022 08:52:32 005 Tonsillectomy completed Amrita Urias NP [address] [facility] [address], [place], [address], [place] [facility] 07/03/2022 08:52:32 Imaging Results None recorded. Procedure Notes None recorded. Medical Equipment None Reported. Allergies Allergen ID Allergen Name Allergen Category Reaction Reaction Severity Criticality Documentation Date Start Date Code Code System Note Provider Name and Address Organization Details Recorded Time 4161 latex environme nt,medica tion hives moderate Not available 09/27/2022 39889 91 RxNorm Gini Bodzioch null, [place] - [facility] 5 08:35:17 6356 No known allergy (situatio n) Not available Not available Not available Not available 11/29/2023 23021 6003 SNOMED [facility] 4 10:19:41 Medications Name Sig Start [...] 2 capsu... (REFER TO PRESCRIP TION NOTES). 12/05 /2023 completed Not Available Not Available Not Available [...] Not Available cyclobenz aprine 5 mg tablet Take 1 tablet(s ) 3 times a day by oral route as needed for 5 days. 2024 active Not Available Not Available Not Avai lable nitrofura ntoin monohydra te/macroc rystals 100 mg [...] mass index (BMI) Body weight Oxygen saturation Heart rate Systolic And Diastolic Provider Name and Address Organization Details Last Updated DateTime 162.56 cm 36.8 kg/m2 00999.2 2 g 99 % 96 /min 136/72 mm[Hg] Gloria Machado [place] [facility] 12:58:10 Date Recorded Body height Body mass index (BMI) Body weight Heart rate Oxygen saturation Systolic And Diastolic Provider Name and Address Organization Details Last Updated DateTime 162.56 cm 35.9 kg/m2 86000.8 1 g 98 /min 99 % 120/76 mm[Hg] Gini Stuart [place] [facility] 09:10:46 Date Recorded Body height Heart rate Oxygen saturation Systolic And Diastolic Provider Name and Address Organization Details Last Updated DateTime 10/27/2024 162.56 cm 80 /min 98 % 114/66 mm[Hg] Gini Stuart [place] [facility] 10/27/2024 08:37:59 Social History Question Answer Notes LastModified by Organizat ion Details LastModified Time Tobacco Smoking Status Never Smoker Amrita Urias NP [address] [facility] [address], [place], [address], [facility] - [facility] 07/03/2022 08:51:43 Do You Have An Advance Directive? No Information not available 07/03/2022 What Is Your Level Of Caffeine Consumption? None [email or web address] Information not available 01/29/2023 What Was The Date Of Your Most Recent Tobacco Screening? 05/05/2024 [email or web address] Information not available 05/05/2024 Sex: Unknown Functional Status Question Answer Note LastModified by Organization Details LastModified Time Do you use any illicit or recreational drugs? No marijuana edible and smoking prior to [email or web address] Information not available 01/29/2023 What is your level of alcohol consumption? Occasional not during pregnany; avg of 3 drinks/month prior [email or web address] Information not available 01/29/2023 Do you or [...] split virus, quadrivalent, preservative 0 completed Cristal Daltonham null, [place] - [facility] 09/27/2022 15:40:18 Influenza, split virus, quadrivalent, preservative 1 completed Cristal Burlingham null, [place] - [facility] 09/27/2022 15:40:19 Influenza, split virus, quadrivalent, preservative 8 completed Cristal Burlingham null, [place] [facility] 09/27/2022 15:40:19 COVID-19, mRNA, LNP-S, PF, 100 mcg/0.5mL dose or 50 mcg/0.25mL dose 1 completed Cristal Burlingham null, [place] [facility] 09/27/2022 15:40:19 COVID-19, mRNA, LNP-S, PF, 100 mcg/0.5mL dose or 50 mcg/0.25mL dose 1 completed Cristal Lizet null, [place] [facility] 09/27/2022 15:40:19 COVID-19, mRNA, LNP-S, PF, 100 mcg/0.5mL dose or 50 mcg/0.25mL dose 0 completed Cristal Lizet null, [place] - [facility] 09/27/2022 15:40:19 COVID-19, mRNA, LNP-S, PF, 30 mcg/0.3 mL dose 2 completed Cristal Lizet null, [place] [facility] 09/27/2022 15:40:19 [...] split virus, quadrivalent, PF 9 [facility] [place] [facility] 09/27/2022 15:40:19 COVID-19, mRNA, LNP-S, PF, diandra-sucrose, 30 mcg/0.3 mL 3 completed [facility], [place] [facility] 06/14/2023 08:06:47 Influenza, split virus, quadrivalent, PF 3 completed [facility] [facility] 06/14/2023 08:06:47 COVID-19, mRNA, LNP-S, PF, diandra-sucrose, 30 mcg/0.3 mL 4 completed YOON TOLBERT PA-C [address] [place] [address] [address], [place], [address], [facility] 05/05/2024 16:23:23 Influenza, MDCK, trivalent, PF 4 completed YOON TOLBERT PA-C [address] [place] [address] [address], [place], [address], [facility] 05/05/2024 16:23:23 Past Encounters Encounter ID Performer Location Encounter Start Date Encounter Closed Date Diagnosis/Indication Diagnosis SNOMED-CT Code Diagnosis ICD10 Code Diagnosis IMO Codes Diagnosis Note [id number] Amrita Urias NP [address] [place] [address] 07/03/2022 08:35:17 07/03/2022 09:07:09 Essential hypertension 32381841 I10 Increase amlodipine to 7.5 mg daily. ADvised on possible s/e including dizziness, ankle swelling, etc. She will monitor @ home. Headache 12602352 R51.9 Refer to ENT to complete work up.Headach es generally better with addition of riboflavin . Screening for cardiovascular system disease 111251702 Z13.6 Check screening labs before physical. [id number] Sun Wilson NP [address],[facility] [address] [facility] [address] 09/27/2022 15:36:29 09/27/2022 16:02:42 Unilateral left sided headache 0975937766 R51.9 Ongoing for 14 months. When discussing [...] will make those referral for her today. [id number] Amrita Urias NP [address] [place] [address] 11/06/2022 09:24:33 11/06/2022 09:56:18 Headache due to exertion 6404756102 91645 G44.84 Recommenda tions from neurologis t Dr. Matson are reasonable .Will check for any vascular anomaly as below. MRI brain w/w/o contrast already been ordered, wonder if they can be combined.I f secondary causes r/o, will trial indomethac in as below. 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 [id number] Amrita Urias NP [address] [place] [address] 12/25/2022 09:02:28 12/25/2022 09:37:49 Gastroesophageal reflux disease 482199795 K21.00 With max OTC dosing PPI, referral to GI for likely EGD is reasonable . Will switch to pantoprazo le BID, may offer more benefits. Call if symptoms worsen before GI referral. Chronic constipation 236 171487 K59.09 Improved with OTC magnesium, and recommenda tions from functional medicine provider. Will defer decision regarding colonoscop y to GI. [id number] YOON TOLBERT PA-C [address] [place] [address] 01/29/2023 11:00:38 01/29/2023 12:09:20 Active or passive immunization 368344036 Z23 already obtained flu and covid shots 12/28/22 Adult heal th examination 164510111 Z00.00 Gastroesop hageal reflux disease 521872332 K21.9 Was planning to obtain an endoscopy prior to , but plans to wait until after at this time. Symptoms well controlled with pepcid thus far. Discussed the risk of worsening GERD symptoms during , pt plans to reach out to gastroente rologist if needed. Reviewed lifestyle modificati ons. Asthma 020833820 J45.90 9 Well controlled . Requesting refill on spacer at this time [id number] AUSTIN GUTIERREZ [address] [place] [address] 07/23/2023 11:38:44 07/23/2023 13:52:45 Acute pelvic pain 224143184 R10.2 Case discussed with Sun Wilson NP.Ddx: acute cystitis, endometrit is, cervicitis , ovarian cyst rupture, vs ectopic (low risk given recent LMP in last 2 weeks)Plan :- Will obtain labs and pelvic US as below. Will plan to f/u with [facility] gynecology 08/05/23.- ED criteria provided. Venereal d isease screening 249424998 Z11.3 Low back pain 831718753 M54.50 2 day history of acute back [...] return for a nursing visit for such. [id number] YOON TOLBERT PA-C [address] [place] [address] 08/20/2023 08:21:51 08/20/2023 08:59:50 Low back pain 956477383 M54.50 Assessment - Concern for muscular sprain/spa sm, sacroiliit is, disc impingemen t/bulge, lumbar radiculopa thy (less likely in the absence of neurologic al sx)Plan- Referral to physical therapy- Continue with ice and heat, 20 minutes on, 20 minutes off- Continue with Tylenol/ib uprofen PRN, ice, heat, Lidocaine patches- continue walking as much as possible- Strict ED criteria provided [id number] AUSTIN GUTIERREZ [address] [place] [address] 09/24/2023 08:25:33 09/24/2023 09:20:42 Low back pain 896834169 M54.50 Assessment - Concern for muscular sprain/spa sm, sacroiliit is, disc impingemen t/bulge, lumbar radiculopa thyPlan- Continue with physical therapy- Continue with ice and heat, 20 minutes on, 20 minutes off- Continue with Tylenol/ib uprofen PRN, ice, heat, Lidocaine patches, +/- turmeric supplement - continue walking as much as possible- Strict ED criteria provided [id number] YOON TOLBERT PA-C [facility] [address] [place] [address],[address] [place] [address] 12/03/2023 10:40:35 12/03/2023 10:56:49 Low back pain 760006067 M54.50 Assessment - Persistent , intermitte nt [...] Strict ED criteria provided Mass of skin 488954510 R 22.9 A singular, circular, jeanne-siz ed, well defined, soft, mobile, nontender mass palpated right paralumbar region, approximat alma 3 inches lateral from spine. Ddx includes lipoma, cyst, abscess, malignancy . We reviewed that this is most likely consistent with a lipoma, but will request consult from dermatolog y at this time for eval & management . [id number] YOON TOLBERT PA-C [facility] [address] [place] [address],[address] [place] [address] 05/05/2024 12:51:44 05/05/2024 13:28:53 Active or passive immunization 083376147 Z23 Up to date on flu, covid, and tetanus. Adult heal th examination 645210760 Z00.00 Will be eligible for 1st mammo 10/2023- prefers to discuss ordering at next visit.Up to date on cervical ca screen. Trying to conceive 06565 9001 Z31.9 May request future referral to [facility]. Elevated blood-pressure reading without diagnosis of hypertension 351831874 R03.0 Monitors BP once weekly at home. Typically 120s/80-90 mmHg. Will continue to monitor routinely. Counseled on role of hydration, physical activity, reduced salt consumptio n. Mass of skin 706242185 R 22.9 A singular, circular, jeanne-siz ed, [...] this time for eval & management . [id number] ALBERT GASTON [address] [place] [address] 06/22/2024 09:57:23 06/22/2024 11:29:15 Lipoma of back 292870829 D17.1 [id number] Noris Monroy RN [address] [place] [address] 07/27/2024 14:27:53 07/27/2024 15:56:13 Dehydration 94270946 E86.0 [id number] YOON TOLBERT PA-C [address] [place] [address] 10/12/2024 09:02:46 10/12/2024 09:29:54 Peroneal tendinitis of right lower limb 4107566377 78455 M76.71 7524620 Suspected peroneal tendinitis of bilateral lower extremitie s, worse on right foot.- Continue physical therapy- Continue use of supportive shoes with wide toe-base- Referral to podiatry for further eval/manag ement Screening mammography 24 718513 Z12.31 7161344 Chronic back pain 857639 002 M54.9 G89.29 [id number] As above. Chronic low back pain 27 8897067 M54.50 G89.29 48457956 Persisting , intermitte nt pain in trapezius [...] turmeric supplement Screening for cardiovascular system disease 387456033 Z13.6 714379 Diabetes m ellitus screening 842703989 Z13.1 198924 Thyroid di sorder screening 675044283 Z13.29 440482 Screening for disorder 958168614 Z13.21 [id number] [id number] Sun Wilson NP [address] [place] [address] 10/27/2024 08:30:09 10/27/2024 09:44:21 Myofascial trigger point 4355036188 71618 M79.10 213049 Injections done today. Health Concerns Section Related Observation LastModified by Organization Detai ls LastModified Time None Recorded Concern Status LastModified by Organization Details LastModified Time None Recorded Advance Directives Directive N: Payers Insurance Date Sequence Insurance Name Policy Number Policy Amos Covered Member ID Amos Member ID Guarantor Name 08/01/2024 1 [facility] (POS) [id number] P[employer] [id number] [employer] 08/01/2024 1 [facility] Pascale Ledbetter [id number] Pascale Encarnacion 08/01/2024 1 [facility] [id number] Pascale Encarnacion [id number] Pascale Encarnacion 10/12/2024 1 *SELF PAY* Ca jovanni Encarnacion 10/12/2024 1 *SELF PAY* Ca jovanni Encarnacion 08/01/2024 1 [employer] [id number] Sandor Encarnacion [id number] Pascale Encarnacion 10/12/2024 [employer] [facility] (EPO[facility] [id number] Pascale Encarnacion [id number] Pascale Encarnacion 10/26/2024 1 [employer] [facility] (PPO) [id number] Pascale Encarnacion [id number] Pascale Encarnacion Notes Date Note Type Note Provider Name and Address Organization Details Recorded Time 05/05/2024 text/html ROS as noted in the HPI Pascale Encarnacion, a 38-year-old female, presents for an annual exam. 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 YOON TOLBERT PA-C [address], [address], [facility] 05/05/2024 16:36:49 06/22/2024 text/html ROS as noted in the HPI Patient has a nodule on the back. Present for about 1 year, is not painful or growing. Patient declined CSE today. ALBERT GASTON [address] [facility], [facility] [address], [place], [address], [facility] - [facility] 06/25/2024 13:51:15 07/27/2024 text/html The patient is here for elective IV hydration, to treat dehydration They will be receiving alleviate. Add ons: toradol to treat pain.They have been screened for contraindications to IV therapy including previous adverse reaction to IV therapy. Dar Tinoco DO 55 [facility] [address], [place], [address], [place] [facility] 08/03/2024 05:51:55 10/12/2024 text/html ROS as noted in the HPI Here for a problem visit regarding back/leg concerns as below. Experiences chronic back pain- upcoming trigger point injections scheduled for 10/27/24 at this office.Pain rated currently as 4/10, although reportedly ebbs and flows. Improves with phototherapy neck, heat, NSAIDs as needed. Will plan to work through pain management at [facility]. Remains quite physically active, performing frequent [...] in the pavement while walking outside of [employer] and looking at her phone. Kelly and Justina benson offer support. Previously seen by [facility] urgent ortho for this issue 1 year ago. Started PT 2 weeks ago. Recently obtained custom shoe inserts and started wearing [employer] shoes while working. Denies any redness, swelling, physical deformities, or prior fractures. YOON TOLBERT PA-C [address] [facility], [facility] [address], [place], [address], [place] [facility] 10/12/2024 11:56:33 10/27/2024 text/html ROS as noted in the HPI Here for trigger point injections of the trapezius and lats. She is being followed by [facility] moving forward. Sun Wilson NP [address] [facility], [facility] [address], [place], [address], [place] [facility] 10/27/2024 09:24:24 OBGyn Episode No OBEpisode recorded.
--- OUTSIDE RECORDS SUMMARY | 2025-01-31 14:52 | XMS_ITS | Clinical Summary ---
Author Organization [facility] Address [address] [place] [phone] Phone Care Team Providers Care Therapy Tech Name Role Phone Yoon Spence Primary Care Provider [phone] Allergies No known active allergies Medications riboflavin, [...] topic Medical Devices Not on file Insurance [employer] [address] [place] [address] [place] [address] Care Teams Therapy Tech Relationship Specialty Start Date End Date Yoon Spence PA [address] [place] [id number] [email or web address] 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 It is not the complete legal health record.[facility]
== END 2025-01-31 14:48 | disposition home or self-care (01) ==
LOC: HO.MRI 14:47
PROVIDERS: PCP Physician Assistant; Visit Provider Podiatrist Foot & Ankle Surgery
DX: S93.401A Sprain of unspecified ligament of right ankle, initial encounter (principal); S93.402A Sprain of unspecified ligament of left ankle, initial encounter; M25.571 Pain in right ankle and joints of right foot; M25.572 Pain in left ankle and joints of left foot
CPT/HCPCS: 73721

== ENCOUNTER → 2025-01-31 15:15 | Outpatient (BNV) | payer OTHER, SELFPAY | PROVIDERS: PCP Physician Assistant; Visit Provider Radiology Diagnostic Ultrasound | DX: M25.471 Effusion, right ankle (principal); R60.0 Localized edema | CPT/HCPCS: 73721 ==